=== PATIENT | female | born 1945 | race Caucasian/White ===

== ENCOUNTER → 2018-06-03 | Outpatient (CLI) | payer OTHER, MEDICAID ==
[~2018-06-03] MED LIST: ALEVE220 MG PO; AMARYL4 MG PO; AMBIEN 5 MG TABL5 M1 PO; CLONAZEPAM 0.50.5 M1 PO; COREG6.25 MG PO; DICLOFENAC SODI25 MG PO; FEVERALL JR 32325 M1 RECTAL; GABAPENTIN 100100 MG PO; GAS RELIEF 8080 MG PO; HYDROCHLOROTHIA25 M2 PO; IBUPROFEN 200200 M1 PO; LEVEMIR SUBQ; LIORESAL 10 MG10 MG PO; LOVASTATIN 20 M20 MG PO; MILK OF MA2400 MG/10 PO; NORCO 5-325 TA1 EACH PO; NOVOLOG100 UNIT/1 SUBQ; OMEPRAZOLE40 MG PO; OXYBUTYNIN 5 MG5 M2 PO; PERCOCET PO; PLAVIX 75 MG TA75 M1 PO; PRINIVIL20 MG PO; PROTONIX40 M1 PO; TOPROL XL25 MG PO; XARELTO10 MG PO; ZOLOFT25 MG PO
--- NOTE | 2018-06-10 16:29 | EKG ---
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
== END ==
LOC: EDUNIT# → M.MRI 09:49
DX: S83.242A Other tear of medial meniscus, current injury, left knee, initial encounter (principal); M17.12 Unilateral primary osteoarthritis, left knee; M25.462 Effusion, left knee; M71.22 Synovial cyst of popliteal space [Baker], left knee; M25.762 Osteophyte, left knee; X58.XXXA Exposure to other specified factors, initial encounter; Y93.89 Activity, other specified; Y92.89 Other specified places as the place of occurrence of the external cause; Y99.8 Other external cause status; Z96.652 Presence of left artificial knee joint

== ENCOUNTER 2018-06-22 06:12 | Inpatient (IN) | payer OTHER, MEDICAID ==
[2018-06-10 08:51] LABS: HEMATOCRIT 40.4 % (37.0-47.0); HEMOGLOBIN 13.6 gm/dL (12.0-15.0); MCHC 33.5 g/dL (28.0-37.0); MCV 92.4 fL (80.0-100.0); MPV 8.3 fl. (7.2-11.1); RBC 4.37 mil/uL (4.20-5.00); RDW-CV 14.3 % (10.5-14.5); WBC 6.9 thou/uL (4.0-11.0)
[2018-06-10 09:20] LABS: ALBUMIN 3.5 g/dL (3.4-5.0); CALCIUM 8.8 mg/dL (8.5-10.1); CREATININE 1.4 mg/dL (0.6-1.3); POTASSIUM 4.2 mmol/L (3.5-5.1); TOTAL BILIRUBIN 0.4 mg/dL (<0.1-1.0); TOTAL PROTEIN 7.2 g/dL (6.4-8.2)
[2018-06-10 10:15] LABS: URINE BILIRUBIN NEGATIVE (Negative); URINE BLOOD NEGATIVE (Negative); URINE CLARITY CLEAR; URINE COLOR YELLOW; URINE GLUCOSE-RANDOM NEGATIVE (Negative); URINE KETONES NEGATIVE (Negative); URINE LEUKOCYTES-REFLEX NEGATIVE (Negative); URINE NITRITE-REFLEX NEGATIVE (Negative); URINE PROTEIN NEGATIVE (Negative); URINE UROBILINOGEN 0.2 E.U./dl (0.2-1.0)
--- NOTE | 2018-06-10 11:00 | NUR ---
MET WITH PT.,WHO GOES BY [employer] AND HER NEIGHBOR,[place]. PT.HAD JUST FINISHED PAC CLASS. SHE WILL HAVE KNEE REPLACEMENT ON 06/22. SHE HAS HX OF CVA AND SAID HER MEMORY IS TERRIBLE. HER NEIGHBOR WILL REMEBER THINGS AND LET PT.'S DAUGHTER KNOW. NEIGHBOR WILL ALSO BEING TAKING CARE OF HER CAT WHILE SHE IS IN THE HOSPITAL. BRIEFLY DISCUSSED HOSPITAL COURSE. PT.WILL NOT HAVE ANYONE TO STAY WITH HER AND FEELS SHE WILL NEED TO GO TO SNF FOR REHAB. GAVE HER LIST OF FACILITIES. SHE WILL DISCUSS WITH DAUGHTER. TOLD HER I WILL SEE HER DAY AFTER HER SURGERY. SHE HAD NO FURTHER QUESTIONS.
[~2018-06-22] VITALS: Ht 160 cm; Wt 100.7 kg
[~2018-06-22 06:12] MED LIST changes: -AMBIEN 5 MG TABL5 M1 PO; -COREG6.25 MG PO; -FEVERALL JR 32325 M1 RECTAL; -MILK OF MA2400 MG/10 PO; -NORCO 5-325 TA1 EACH PO; -OMEPRAZOLE40 MG PO; -PERCOCET PO; -PROTONIX40 M1 PO; -XARELTO10 MG PO
[2018-06-22 09:15] VITALS: BP 147/61
--- NOTE | 2018-06-22 15:10 | NUR ---
PATEINT ARRIVED TO THE UNIT AT 1420 FROM PACU. ALERT AND ORIENTED BUT VERY SLEEPY. AROUSES WITH STIMULUS. 2 LITERS 02 WITH END TITLE PLACED. VSS ON 2 LITERS 02. WILL CHECK ORDERS AND IMPLEMENT. NO COMPLAINT OF PAIN, NAUSEA, OR SOA AT THIS TIME. CALL LIGHT PLACE WITHIN REACH. WILL CONTINUE TO MONITOR CLOSELY.
--- NOTE | 2018-06-22 17:02 | NUR ---
RECIEVED O.T. ORDERS. WILL DEFER TO P.T. AT THIS TIME. PLEASE ORDER FURTHER O.T. SERVICES AT THIS TIME.
--- NOTE | 2018-06-22 17:49 | NUR ---
PATEINT REMAINS ALERT AND ORIENTED X4. VSS ON 2 LITERS 02. MINIMAL COMPLAINTS OF PAIN. NO COMPLAINTS OF NAUSEA OR SOA. FLUIDS INFUSED ORDERED. PATIENT RESTING COMFORTABLY AT THIS TIME. HOURLY ROUNDS MAINTAINED, CALL LIGHT WITHIN REACH. NURSING WILL CONTINUE TO MONITOR.
[2018-06-23] VITALS: BP 141/54
[2018-06-23 04:00] VITALS: BP 123/60
[2018-06-23 04:09] LABS: HEMATOCRIT 32.4 % (37.0-47.0); HEMOGLOBIN 10.6 gm/dL (12.0-15.0)
--- NOTE | 2018-06-23 05:40 | NUR ---
PATIENT PROGRESSING TOWARDS GOALS. DENIED PAIN ALL SHIFT. TOLERATED THE CMP MACHINE WELL. PT GOT OUT OF BED INTO THE CHAIR, TOLERATED WELL. WILL CONTINUE TO MONITOR.
[2018-06-23 10:11] VITALS: BP 155/64
--- NOTE | 2018-06-23 10:54 | NUR ---
CALL FROM OCTAVIO CARRANZA [facility] SEVERAL DAYS AGO,STATING PT.AND DAUGHTER INTERESTED IN PT.COMING THERE FOR SKILLED STAY POST HOSPITALIZATION. SHE REQUESTED CM FAX HER INITIAL INFORMATION WHEN AVAILABLE. PT.GOING TO TELE TODAY FOR ELEVATED TROPONIN AND CHEST PAIN. INFORMED [phone] AND FAXED HER FACE SHEET,H&P AND OP [phone].
--- NOTE | 2018-06-23 12:56 | NUR ---
PT ARRIVED TO THE FLOOR AROUND 1145. PT A&O AND COOPERATIVE. BLOOD SUGAR WAS 455, TROPONIN LEVEL WAS CALLL FROM LAB AND NOTED TO BE 1.16 AT 1150. THESE RESULTS WERE COMMUNICATED TO DR BERNABE AT 1155 AND NO NEW ORDERS WERE RECIEVED. PT TREATED WITH INSULIN PER DEC. PT VSS AND TRACING SR ON THE MONITOR. NURSING WILL CONTINUE TO MONITOR.
--- NOTE | 2018-06-23 13:42 | NUR ---
ASSUMED CARE OF PATIENT AFTER MORNING REPORT AT APPROX 0740. ALERT AND ORIENTED X4 BUT FIRGETFUL AND SOMETIMES CONFUSED. ASSESSMENT COMPLETED AND CHARTED. VSS ON ROOM AIR. NO COMPLAINTS OF NAUSEA OR SOA DURING MORNING ASSESSMENT. MINIMAL COMPLAINTS OF PAIN ALSO NOTED ON MORNING ASSESSMENT. FLUIDS DISCONTINUED, ANTIBIOTICS INFUSED ORDERED. PAIN MEDICATION GIVEN BEFORE MORNING THERAPY, HEMAVAC REMOVED AT THIS TIME. PATIENT HAD COMPLAINT OF CHAEST PRESSURE AND PAIN. EKG ORDERED AND COMPLETED, LABS ORDERED WITH CRITICAL RESULTS FOR D-DIMER AND TROPONIN. DR BERNABE NOTIFIED, ORDERS GIVEN FOR CARDIOLOGY CONSULT AND TRANSFER TO TELEMETRY. REPORT GIVEN TO AMY COBB, PATIENT TRANSFERRED TO TELE AT 1115.
[2018-06-23 16:00] VITALS: BP 137/63
--- NOTE | 2018-06-23 17:12 | 2DMMODE ---
[place] [address] 2 D/M-MODE ECHOCARDIOGRAM Name: SKYLA CODY Room: [address] IN [facility]#: [id number] Admission: 06/22/18 Attend Phys: Sidney Malik Discharge: Date of : 41 Date of Service: 06/23/18 1711 Report #: [id number] THIS REPORT FOR: //name// APPROVED REPORT Study performed: 06/23/2018 14:43:52 EXAM: Comprehensive 2D, Doppler, and color-flow Echocardiogram Patient Location: In-Patient Room #: 200 Status: routine BSA: 2.05 HR: 69 bpm BP: 155/65 mmHg Rhythm: NSR Other Information Study Quality: Good Indications Elevated Troponin Chest Pain 2D Dimensions IVSd: 13.60 (7-11mm) LVOT Diam: 19.03 (18-24mm) LVDd: 43.99 mm PWd: 10.48 (7-11mm) Ascending Ao: 26.36 (22-36mm) LVDs: 24.45 (25-40mm) Aortic Root: 24.58 mm Aortic Valve AoV Peak Darren.: 2.18 m/s AO Peak Gr.: 19.09 mmHg LVOT Max P.79 mmHg AO Mean Gr.: 10.33 mmHg LVOT Mean P.61 mmHg LVOT Max V: 1.09 m/s AO V2 VTI: 48.38 cm LVOT Mean V: 0.75 m/s MIMI (VTI): 1.76 cm2 LVOT V1 VTI: 29.97 cm Mitral Valve E/A Ratio: 1.22 MV Decel. Time: 190.62 ms MV E Max Darren.: 1.60 m/s MV PHT: 55.28 ms MVA (PHT): 3.98 [place]2 [place] [address] 2 D/M-MODE ECHOCARDIOGRAM Name: SKYLA CODY Room: [address] IN [facility]#: [id number] Admission: 06/22/18 Attend Phys: Sidney Malik Discharge: Date of : 41 Date of Service: 06/23/18 1711 Report #: [id number] TDI E/Lateral E': 14.55 E/Medial E': 22.86 Medial E' Darren.: 0.07 m/s Lateral E' Darren.: 0.11 m/s Pulmonary Valve PV Peak Darren.: 0.98 m/s PV Peak Gr.: 3.85 mmHg Tricuspid Valve RAP Estimate: 5.00 mmHg TR Peak Gr.: 37.05 mmHg RVSP: 42.00 mmHg PA Pressure: 42.00 mmHg Left Ventricle The left ventricle is normal size. There is normal LV segmental wall motion. Mild concentric left ventricular hypertrophy. Left ventricular systolic function is normal. The left ventricular ejection fraction is within the normal range. LVEF is 55-60%. The left ventricular diastolic function is normal. Right Ventricle The right ventricle is normal size. The right ventricular systolic function is normal. Atria Left atrium is mildly dilated. The right atrium size is normal. Aortic Valve Mild aortic valve sclerosis. No aortic regurgitation is present. No hemodynamically significant valvular aortic stenosis. Mitral Valve There is mitral annular calcification. Mild mitral regurgitation. No evidence of mitral valve stenosis. Tricuspid Valve The tricuspid valve is normal in structure. Trace tricuspid regurgitation. Moderate pulmonary hypertension. Pulmonic Valve The pulmonary valve is normal in structure. There is no pulmonic valvular regurgitation. Great Vessels The aortic root is normal in size. IVC [place] [address] 2 D/M-MODE ECHOCARDIOGRAM Name: SKYLA CODY Myles Room: [address]#: [id number] Admission: 06/22/18 Attend Phys: Sidney Malik Discharge: Date of : 41 Date of Service: 06/23/18 1711 Report #: [id number] collapses >50% with inspiration. Pericardium There is no pericardial effusion. <Conclusion> The left ventricle is normal size. Mild concentric left ventricular hypertrophy. Left ventricular systolic function is normal. The left ventricular ejection fraction is within the normal range. LVEF is 55-60%. The left ventricular diastolic function is normal. The right ventricle is normal size. Left atrium is mildly dilated. Mild aortic valve sclerosis. No aortic regurgitation is present. No hemodynamically significant valvular aortic stenosis. There is mitral annular calcification. Mild mitral regurgitation. No evidence of mitral valve stenosis. The tricuspid valve is normal in structure. IVC is normal in size and collapses >50% with inspiration. There is no pericardial effusion. There is normal LV segmental wall motion. <ELECTRONICALLY SIGNED> By: Calin Tamayo MD, FACC 06/23/181710 10 10 Calin Tamayo MD, FACC /INF
--- NOTE | 2018-06-23 17:26 | EKG ---
[place] [address] ELECTROCARDIOGRAM REPORT Name: SKYLA CODY Room: [address] ADM IN .R.#: [id number] Admission: 06/22/18 Attend Phys: Alvina Olson Discharge: Date of : 41 Report #: [id number] THIS REPORT FOR: //name// [facility] Test Date: 2018-06-23 Test Time: 10:17:40 Pat Name: SKYLA CODY Department: Room: 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1945 Requested By: Sidney Malik Order Number: [id number] Reading MD: Calin Tamayo Measurements Intervals [place] Rate: 81 P: 39 WI: 156 QRS: -30 QRSD: 103 T: 79 QT: 399 QTc: 464 Interpretive Statements Sinus rhythm Abnormal R-wave progression, late transition LVH with secondary repolarization abnormality Compared to ECG 06/10/2018 08:56:31 No significant changes Electronically Signed On 06-23-2018 17:26:14 CDT by Calin Tamayo [email or web address] <ELECTRONICALLY SIGNED> By: Calin aTmayo MD, [facility] 06/23/18 [id number] Calin Tamayo MD, [facility] /EPI
--- NOTE | 2018-06-23 18:01 | NUR ---
ASSUMED CARE OF PT AFTER RECIEVING REPORT FROM AMY ASTUDILLO. PT IS ALERT AND ORIENTED TO SELF AND PLACE BUT IS OFTEN CONFUSED ON WHEN AND SITUATION. WHEN SPEAKING TO THE PT SHE OFTEN BEGINS TO RAMBLE ABOUT THINGS THAT MAKE NO SENSE. PT VSS AND TRACING SR ON THE MONITOR. WHEN PT ARRIVED TO THE FLOOR HER BS WAS IN EXCESS OF 450. DR BERNABE WAS ON THE FLOOR AND WAS INFORMED OF THIS AND THE PATIENTS CRITICAL TROPONIN LEVEL. NO NEWE ORDERS RECIEVED AND BS TREAED PER MAR. HOURLY ROUNDING COMPLETED FOR PATIENT COMFORT AND SAFTEY. NURSING WILL CONTINUE TO MONITOR.
[2018-06-23 20:00] VITALS: BP 124/95
[2018-06-24] VITALS: BP 102/36
[2018-06-24 04:00] VITALS: BP 111/43
[2018-06-24 04:34] LABS: HEMATOCRIT 27.7 % (37.0-47.0); HEMOGLOBIN 9.1 gm/dL (12.0-15.0)
--- NOTE | 2018-06-24 05:20 | NUR ---
ASSUMED CARE OF PT AFER REPORT AT 1930. PT A&4. FORGETFUL & CONFUSED AT TIMES. VSS. PHYSICAL ASSESSMENT COMPLETED AND CHARTED. PT ON RA WITH 92% O2 SAT. PT TRACING SR/SB ON TELE. PT UP STANDBY ASSIST TO TOILET.DENIES ANY PAIN OR DISCOMFORT. THIS NURSE TALKED TO PTS DAUGHTER (ADRIENNE VALDERRAMA) AND REQESTED FOR HER MOTHER TO HAVE A NEURO CONSULT FOR CONFUSION THIS AM. PTS DAUGHTER THINK THAT PT MAY HAD A MINI STROKES AFTER CVA ON 2013 THAT COULD CONTRIBUTE TO THE CONFUSION. HOURLY ROUNDING OBSERVED. CALL LIGHT WITHIN REACH. BED IN LOW POSITION. BED ALARM ON.
[2018-06-24 12:15] VITALS: BP 105/45
--- NOTE | 2018-06-24 12:43 | NUR ---
Pt is A&O, mild forgetfulness. Pt resides at home alone and is independent with ADLs. Supportive family that is invovled in POC. Pt has a cane that she uses for mobility. Hx of skilled at [facility]. Hx of , but does not recall the name of the agency. Pt's goal is to dc to [facility] [place] skilled, initial referral faxed. Therapy notes to be faxed once available. Pt stated that she is suppose to have a stress test tomorrow, anticipate dc tomorrow or over the weekend. When CM faxes therapy notes, will ask [facility] to initiate insurance auth for probably weekend dc. Following.
[2018-06-24 16:00] VITALS: BP 97/41
--- NOTE | 2018-06-24 19:04 | NUR ---
ASSUMED CARE OF PT AT 0730. PT REMAINS A&O BUT FORGETFUL. VSS ON ROOM AIR AND TRACING SR ON THE MONITOR. PT C/O PAIN EFFECTIVELY CONTROLLED WITH PRN PAIN MEDS PER DEC. PT HAS HAD 2 LOOSE STOOLS TODAY, BUT NONE IN THE LAST 4 HOURS. PT HAS ADECENT APPETITE AND HAS ATE GREATER THAN 75% OF MEALS. HOURLY ROUNDING COMPLETED FOR COMFORT AND SAFTEY,NURSING WILL CONTINUE TO MONITOR
[2018-06-24 20:00] VITALS: BP 73/25
[2018-06-25] VITALS (7 sets, daily range): BP systolic 92–124; BP diastolic 33–48
--- NOTE | 2018-06-25 04:59 | NUR ---
ASSUMED CAER OF PT AFTER REPORT AT 1930. PT A&OX4 AND FORGETFUL. VITAL SIGNS TAKEN AND RECORDED. BP 73/25 [facility]-[address] MCKEON INFORMED WITH NEW ORDERS. PHYSICAL ASSESSMENT COMPLETED AND CHARTED. PT ON RA WITH 96% O2 SAT. PT REMAINS ON BED ALL NIGHT SHE FEELS WEAK. DENIES ANY CHEST PAIN OR SOA. INSTRUCTED ON NPO FOR STRESS TEST TODAY. COMMUNICATES UNDERSTANDING. HOURLY ROUNDING OBSERVED. CALL LIGHT WITHIN REACH. BED IN LOW POSITION. BED ALARM ON.
--- NOTE | 2018-06-25 10:33 | NUR ---
ASSUMED CARE OF PT. PLEASE SEE DOCUMENTED ASSESSMENT. PT IS NPO FOR STRESS TEST. BETA ERLINDA HELD THIS MORNING WELL HYPOGLYCEMICS
--- NOTE | 2018-06-25 13:30 | NUR ---
[facility]
--- NOTE | 2018-06-25 14:53 | NUR ---
1425 RECEIVED PATIENT IN TRANSFER FROM ICU. PATIENT ASKS TO SHOWER BEFORE PUTTING ON TELEMETRY PACK. ASSESSMENT COMPLETED AND PT ASSISTED TO SHOWER.
--- NOTE | 2018-06-25 15:27 | NUR ---
1515 BACK FROM STRESS TEST. OT BATHING PATIENT
--- NOTE | 2018-06-25 15:30 | NUR ---
SPOKE TO PATIENT TO DISCUSS DISCHARGE PLANNING NEEDS AND SNF AT [facility] AT D/C. PATIENT INFORMS THAT SHE WOULD LIEK TO GO TO [facility] AT D/C IF POSSIBLE. PATIENT WILL NEED UPDATED PT NOTES AND AN OT EVAL FAXED TO [facility] WHEN AVAILABLE. CONTACTED [facility] ADMISSIOND AND LEFT A MESSAGE TO INFORM THAT UPDATED PT/OT NOTED WOULD BE FAXED WHEN AVAILABLE. CM WILL REMAIN AVAILABLE TO ASSIST AND FOLLOW NEEDED. [facility] PHONE: [phone] FAX: [phone]
--- NOTE | 2018-06-25 17:54 | NUR ---
PATIENT PROGRESSING TOWARDS GOALS. STRESS TEST COMPLETED THIS AFTERNOON. UP TO WALK AND TO WORK WITH THERAPIES. VSS. HAS NOT REQUIRED PAIN MEDICATION. CPM AND POLAR CARE MAINTAINED. DAUGHTER HAS VISITED. PLAN IS FOR SKILLED CARE
[2018-06-26 04:00] VITALS: BP 114/36
--- NOTE | 2018-06-26 04:54 | NUR ---
ASSUMED CARE OF PT AFTER REPORT AT 1930. PT A&OX4. VSS. PHYSICAL ASSESSMENT COMPLETED AND CHARTED. PT ON RA WITH 98% O2 SAT. PT TRACING SB ON TELE. PT UP WITH 1 ASSIST. PT RESTED WELL ON BED. DENIES ANY PAIN OR DISCOMFORT. HOURLY ROUNDING OBSERVED. HS REST & SAFETY GOALS ACHIEVED. CALL LIGHT WITHIN REACH. BED IN LOW POSITION. BED ALARM ON.
[2018-06-26 05:29] LABS: HEMATOCRIT 24.5 % (37.0-47.0); HEMOGLOBIN 8.3 gm/dL (12.0-15.0); MCH 31.4 pg (26.0-34.0); MCHC 33.7 g/dL (28.0-37.0); MCV 93.3 fL (80.0-100.0); MPV 9.2 fl. (7.2-11.1); RBC 2.63 mil/uL (4.20-5.00); WBC 8.4 thou/uL (4.0-11.0)
[2018-06-26 05:51] LABS: ALBUMIN 2.2 g/dL (3.4-5.0); CALCIUM 7.6 mg/dL (8.5-10.1); CREATININE 1.4 mg/dL (0.6-1.3); MAGNESIUM 1.8 mg/dL (1.8-2.4); POTASSIUM 4.5 mmol/L (3.5-5.1); TOTAL BILIRUBIN 0.2 mg/dL (<0.1-1.0); TOTAL PROTEIN 5.2 g/dL (6.4-8.2); TROPONIN-I LEVEL 0.55 ng/mL (<0.06)
[2018-06-26 07:30] VITALS: BP 114/41
--- NOTE | 2018-06-26 09:36 | NUR ---
Faxed OT note to [facility]. Will await return call re: bed availability and acceptance.
[2018-06-26 12:00] VITALS: BP 160/55
--- NOTE | 2018-06-26 14:19 | NUR ---
RECEIVED PT CARE 0700. SHE IS ALERT AND ORIENTED X4. FORGETFUL AT TIMES. VSS. WAIT STAFF TRACING SR-SB. HEART RATE 50'S-60'S. SHE IS UP WITH ASSIST X1, A GAIT BELT, AND A WALKER. SHE DENIES SOA. O2 SAT 100% ON ROOM AIR. AM ASSESSMENT CHARTED. MEDS PER DEC. NEW RENAL CONSULT CALLED AND RECEIVED NEW ORDERS PER DR BELLO. UP IN THE CHAIR MOST OF THE MORNING. CALL LIGHT WITHIN REACH. WILL CONTINUE TO MONITOR.
[2018-06-26 15:17] VITALS: BP 118/83
[2018-06-26 16:36] VITALS: BP 123/45
[2018-06-26 19:03] LABS: URINE BILIRUBIN NEGATIVE (Negative); URINE BLOOD NEGATIVE (Negative); URINE CLARITY CLEAR; URINE COLOR YELLOW; URINE GLUCOSE-RANDOM NEGATIVE (Negative); URINE KETONES NEGATIVE (Negative); URINE LEUKOCYTES-REFLEX NEGATIVE (Negative); URINE NITRITE-REFLEX NEGATIVE (Negative); URINE PROTEIN NEGATIVE (Negative); URINE UROBILINOGEN 0.2 E.U./dl (0.2-1.0)
[2018-06-26 20:00] VITALS: BP 157/57
[2018-06-27] VITALS: BP 111/35
[2018-06-27 04:00] VITALS: BP 98/44
--- NOTE | 2018-06-27 04:32 | NUR ---
ASSUMED CARE OF PT AFTER REPORT AT 1930. PT A&OX4. FORGETFUL AT TIMES. VSS. PHYSICAL ASSESSMENT COMPLETED AND CHARTED. PT ON RA WITH 99% O2 SAT. PT TRACING SB ON TELE. PT RESTED WELL ON BED. DENIES ANY PAIN OR DISCOMFORT. MEDS GIVEN PER MAR. HOURLY ROUNDING OBSERVED. CALL LIGHT WITHIN REACH. BED IN LOW POSITION.
[2018-06-27 04:41] LABS: HEMATOCRIT 24.2 % (37.0-47.0); HEMOGLOBIN 8.2 gm/dL (12.0-15.0); MCH 31.4 pg (26.0-34.0); MCHC 33.7 g/dL (28.0-37.0); MCV 93.1 fL (80.0-100.0); MPV 8.9 fl. (7.2-11.1); RBC 2.59 mil/uL (4.20-5.00); RDW-CV 13.6 % (10.5-14.5); WBC 7.7 thou/uL (4.0-11.0)
[2018-06-27 04:43] LABS: CALCIUM 7.6 mg/dL (8.5-10.1); CREATININE 1.2 mg/dL (0.6-1.3); MAGNESIUM 1.8 mg/dL (1.8-2.4); POTASSIUM 4.8 mmol/L (3.5-5.1)
[2018-06-27 07:30] VITALS: BP 149/47
[2018-06-27 11:30] VITALS: BP 175/56
[2018-06-27 15:41] VITALS: BP 155/58
[2018-06-27 16:07] LABS: ABSOLUTE EOSINOPHILS 0.2 thou/uL (0.0-0.7); ABSOLUTE LYMPHOCYTES 1.9 thou/uL (0.8-5.3); ABSOLUTE MONOCYTES 0.7 thou/uL (0.0-1.2); ABSOLUTE NEUTROPHILS 4.3 thou/uL (1.6-8.1); BASOPHILS 0.5 %; EOSINOPHILS 3.4 %; HEMATOCRIT 26.1 % (37.0-47.0); HEMOGLOBIN 8.7 gm/dL (12.0-15.0); LYMPHOCYTES 26.8 %; MCH 31.2 pg (26.0-34.0); MCHC 33.5 g/dL (28.0-37.0); MCV 93.1 fL (80.0-100.0); MONOCYTES 9.3 %; MPV 9.1 fl. (7.2-11.1); NUCLEATED RBCS 0 /100WBC; PLATELET COUNT* 176 thou/uL (150-400); WBC 7.1 thou/uL (4.0-11.0)
--- NOTE | 2018-06-27 18:13 | NUR ---
PATIENT PROGRESSING TOWARDS GOALS. PAIN CONTROLLED WITH PRN PAIN MEDICATIONS. PRN LAXATIVES AND STOOL SOFTENERS GIVEN. PRN LACTULOSE GIVEN AFTER NO BOWEL MOVEMENT WITHIN 6 HRS OF THE LAXATIVES. SHE DENES ANY SOA. UP WITH ASSIST X1, A WALKER, AND A GAIT BELT. UP IN THE CHAIR MOST OF THE AFTERNOON. FAMILY UPDATED ON PLAN OF CARE. WILL CONTINUE TO MONITOR. HOURLY ROUNDING CHARTED.
[2018-06-27 19:45] VITALS: BP 116/56
[2018-06-28] VITALS (8 sets, daily range): BP systolic 119–163; BP diastolic 43–58
--- NOTE | 2018-06-28 04:03 | NUR ---
END SHIFT: PT UP MULTIPLE TIMES TO COMMODE OR BATHROOM ATTEMPTING TO HAVE BM WITH NO RESULT. PT STATED SHE FELT CRAMPY AND HAD GAS PAINS. PT HAD ISSUES WITH WALKING WITH WALKER A FEW TIMES SHE STATES HER FEET KEPT FALLING ASLEEP AND THEY WERE TOO WEAK FOR HER TO WALK AND SHE REQUESTED A WHEELCHAIR. SB ON MONITOR. REFUSED POLAR PACK OVER SHIFT- WAS OFFERED MULTIPLE TIMES. NO REPORTS OF PAIN. VSS. ASSESSMENT UNCHANGED. SAFETY PRECAUTIONS IN PLACE. CALL LIGHT IN REACH. PERFORMED HOURLY ROUNDING. WILL CONT TO MONITOR.
[2018-06-28 04:46] LABS: ABSOLUTE EOSINOPHILS 0.3 thou/uL (0.0-0.7); ABSOLUTE LYMPHOCYTES 1.9 thou/uL (0.8-5.3); ABSOLUTE MONOCYTES 0.8 thou/uL (0.0-1.2); ABSOLUTE NEUTROPHILS 5.8 thou/uL (1.6-8.1); BASOPHILS 0.5 %; HEMATOCRIT 25.8 % (37.0-47.0); HEMOGLOBIN 8.7 gm/dL (12.0-15.0); LYMPHOCYTES 21.3 %; MCH 31.3 pg (26.0-34.0); MCHC 33.6 g/dL (28.0-37.0); MCV 93.4 fL (80.0-100.0); MONOCYTES 9.6 %; MPV 8.9 fl. (7.2-11.1); NUCLEATED RBCS 0 /100WBC; PLATELET COUNT* 200 thou/uL (150-400); POLYS 65.6 %; RBC 2.77 mil/uL (4.20-5.00); RDW-CV 13.9 % (10.5-14.5); WBC 8.8 thou/uL (4.0-11.0)
[2018-06-28 04:58] LABS: CREATININE 1.2 mg/dL (0.6-1.3); POTASSIUM 5.1 mmol/L (3.5-5.1)
--- NOTE | 2018-06-28 13:02 | NUR ---
I have reviewed the documentation by BAUDILIO LAUREANO from 06/28/18 and I concur with it. BONY OWENS
[2018-06-28] MEDS ORDERED: XARELTO10 MG PO (13:37)
[2018-06-28] MEDS ORDERED: PERCOCET PO (13:38)
[2018-06-28] MEDS ORDERED: FEVERALL JR 32325 M1 RECTAL (13:39)
[2018-06-28] MEDS ORDERED: COREG6.25 MG PO (13:40)
[2018-06-28] MEDS ORDERED: AMBIEN 5 MG TABL5 M1 PO (13:40)
[2018-06-28] MEDS ORDERED: NORCO 5-325 TA1 EACH PO (13:42)
[2018-06-28] MEDS ORDERED: PROTONIX40 M1 PO (13:43)
--- NOTE | 2018-06-28 13:46 | NUR ---
SPOKE TO THE PATIENT TO DISCUSS DISCHARGE PLANNING NEEDS AND SKILLED AT D/C. PATIENT INFORMS THAT SHE STIL PLANS TO GO TO [facility] FOR REHAB MEDICINE SKILLED AT D/C. SPOKE TO LESLY WITH ADMISSIONS AT [facility] FOR REHAB [facility] AND SHE INFORMS THAT SHE IS AWAITING INSURANCE AUTH, BUT SHOULD HAVE AUTH SOON. LESLY TO FOLLOW-UP WITH CM SOON SHE HAS AUTH. CM WILL REMAIN AVIALABLE TO ASSIST AND FOLLOW NEEDED.
--- NOTE | 2018-06-28 16:47 | NUR ---
HOURLY ROUNDING COMPLETE
--- NOTE | 2018-06-28 16:59 | CARDNUC ---
[place] [address] CARDIAC NUCLEAR IMAGING REPORT Name: SKYLA CODY Room: [address] IN [facility]#: [id number] Admission: 06/22/18 Attend Phys: Sidney Malik Discharge: Date of : 41 Date of Service: 06/28/18 1659 Report #: [id number] THIS REPORT FOR: //name// APPROVED REPORT Study performed: 06/24/2018 15:28:00 Indication: Abnormal EKG, Chest pain Patient Location: In-Patient Room #: 200 Stress Tech: Sabi Levin Stress Nurse: Constance Sargent RN Ht: 5 ft 3 in Wt: 222 lbs BSA: 2.02 m2 BMI: 39.32 Medical History Medical History: RECENT NSTEMIM HYPERLIPIDEMIA, HYPERTENSION, DIABETES, CVA Medications: XARELTO, HCTZ, LISINOPRIL, CARVEDILOL, ATORVASTATIN, PLAVIX Allergies: DONEPEZIL, LATEX Cardiac Risk Factors: AGE, HYPERLIPIDEMIA, HYPERTENSION, DIABETES Previous Cardiac Procedures: NONE Exercise History: Sedentary Meds Held (24 hrs): CARVEDILOL, PT HAD RECENT SURGERY TO LEFT KNEE. Resting Data Rest SPECT myocardial perfusion imaging was performed in supine position 30 minutes following the intravenous injection of 38.0 mCi of Tc-99m Sestamibi. Time of rest injection: 08:15 The images were gated to evaluate regional wall motion and calculate left ventricular ejection fraction. Administration Route: IV Administration Site: Right Arm Pharmacologic Stress Pharmacologic stress test was performed by injecting Regadenoson 0.4 mg IV push over 10-15 seconds immediately followed by the intravenous injection of 39.0 mCi of Tc-99m Sestamibi. Time of stress injection: 13:55 Administration Route: [place] [address] CARDIAC NUCLEAR IMAGING REPORT Name: SKYLA CODY Room: [address] IN ..#: [id number] Admission: 06/22/18 Attend Phys: Sidney Malik Discharge: Date of : 41 Date of Service: 06/28/18 1659 Report #: [id number] Administration Site: Right Arm Heart Rate at time of stress injection: 65 bpm. Gated Stress SPECT was performed 40 minutes after stress injection. The images were gated to evaluate regional wall motion and calculate left ventricular ejection fraction. Stress Test Details Stress Test: Pharmacologic stress testing performed using 0.4 mg of regadenoson per 5 mL given IV over 10 seconds. HR Max Heart Rate (APMHR): 145 bpm Resting HR: 60 bpm Target HR (85% APMHR): 123 bpm Max HR Achieved: 65 bpm % of APMHR: 44 Recovery HR: 64 bpm BP Resting BP: 143/101 mmHg Recovery BP: 123/55 mmHg ECG Resting ECG: Sinus Rhythm, normal EKG Stress ECG: Sinus Rhythm, normal EKG ST Change: None Arrhythmia: None Recovery ECG: Sinus Rhythm, normal EKG Recovery ST Change: None Recovery Arrhythmia: None Clinical Reason for Termination: Completed protocol Stress Symptoms: NONE Exercise duration: 0 min sec Exercise capacity: 1 METs The patient had no significant symptoms with Lexiscan infusion. Nurse Comments PT TOLERATED TEST WELL Stress ECG Conclusion The baseline 12-lead EKG show sinus rhythm with no significant ST or T wave abnormalities. EKGs obtained during and post Lexiscan infusion show sinus rhythm with no significant ST [place] [address] CARDIAC NUCLEAR IMAGING REPORT Name: SKYLA CODY Room: [address]#: [id number] Admission: 06/22/18 Attend Phys: Sidney Malik Discharge: Date of : 41 Date of Service: 06/28/18 1659 Report #: [id number] compared to baseline. There were no stress-induced arrhythmias. Study Quality Study: Good Artifact: No artifact Study Data At rest, the left ventricular ejection fraction was 76%.. Post stress, the left ventricular ejection was 71%.. TID = 1.02. Perfusion There is a focal mild in intensity reversible defect involving the apex. No other defects are identified. Wall Motion Normal left ventricular wall motion. Nuclear Conclusion ECG Findings: negative for ischemia Clinical Findings: negative for ischemia Nuclear Findings: positive for ischemia Exercise Capacity: not assessed Left Ventricular Function: normal Risk Study: moderate Myocardial perfusion images suggest a focal region of ischemia involving the apex. Overall left ventricular systolic function is well-preserved. This is a moderate risk study. <Conclusion> The baseline 12-lead EKG show sinus rhythm with no significant ST or T wave abnormalities. EKGs obtained during and post Lexiscan infusion show sinus rhythm with no significant ST or T wave changes when compared to baseline. There were no stress-induced arrhythmias. <ELECTRONICALLY SIGNED> By: Davion Alvarez MD, FACC 06/28/181658 58 58 Davion Alvarez MD, FACC /INF
--- NOTE | 2018-06-28 17:39 | NUR ---
PATIENT DISCHARGED TO [facility] AT THIS TIME VIA [facility]. IV REMOVED. NEW PAIR OF STEVEN HOSE APPLIED. [facility] SENT WITH PATIENT. SCRIPTS FOR PERCOCET AND XARELTO SENT. COPY OF CHART SENT. FACILITY TO PROVIDE CPM. REPORT GIVEN TO FACILITY. DAUGHTER WILL MEET PATIENT AT FACILITY.
--- NOTE | 2018-07-06 10:42 | OP ---
[facility] [address] [place] [address] OPERATIVE REPORT Name: SKYLA CODY Room: [address] IN ..#: [id number] Admission: 06/22/18 Attend Phys: Alvina Olson Discharge: 06/28/18 Date of : 41 Report #: [id number] THIS REPORT FOR: //name// CC: Chaz Malik DATE OF SERVICE: 06/22/2018 PREOPERATIVE DIAGNOSIS: Left knee arthritis. POSTOPERATIVE DIAGNOSIS: Left knee arthritis. PROCEDURE: Left total knee arthroplasty. SURGEON: Dillon Monroe II, DO EKG/ECG TECHNICIAN: MANUELITO Cross ANESTHESIA: General endotracheal with adductor canal block. ESTIMATED BLOOD LOSS: 60 mL. ANTIBIOTICS: Ancef preoperatively. DRAINS: Medium Hemovac. COMPLICATIONS: None. CONDITION OF PATIENT: Stable to recovery room. IMPLANTS: Listed in the operative record and progress note. BRIEF HISTORY: The patient seen in the preoperative area. Preoperative H and P was performed. Site was marked. Questions were answered. Risks and benefits were discussed with the patient in detail about surgery. The patient wished to proceed assuming all risks. DESCRIPTION OF PROCEDURE: The patient was taken to the operative suite and placed supine on the operative table and given appropriate anesthesia. A well-padded tourniquet applied to the upper thigh, was inflated to 300 mmHg after gravity exsanguination. The operative knee was sterilely prepped and draped. Surgery began by a midline incision. This was carried down to subcutaneous tissues. A medial parapatellar arthrotomy was performed and carried down to bone. The patella was then everted and excess soft tissue removed from around the femur. The femoral cutting block was then applied, [facility] [address] [place] [address] OPERATIVE REPORT Name: SKYLA CODY Room: [address]#: [id number] Admission: 06/22/18 Attend Phys: Alvina Olson Discharge: 06/28/18 Date of : 41 Report #: [id number] checked with a drop federico for rotational alignment, pinned into appropriate position and appropriate cuts were made. A 4-in-1 cutting block was then applied, checked for rotational alignment, pinned into appropriate position and appropriate cuts were made. The tibia was then exposed. Excess meniscus was removed. Retractor was placed along the collateral ligaments. Tibial cutting block was applied, pinned into appropriate position, checked with a drop federico for rotational alignment and slope and appropriate cut was made. Tibial bone was removed. Tibial baseplate was then applied, checked for rotational alignment with a drop federico and pinned into appropriate position. Pin was then applied and box cut was made. This was then trialed with the appropriate spacer, which showed excellent fit and fill and excellent stability of the knee through all range of motion. The patella was then reamed in appropriate fashion and sized to appropriate size. Three peg holes were drilled. It was then trialed and found to have excellent flexion, extension and excellent tracking of the patella within the groove. These trials were then removed. The tibia was punched in appropriate fashion. Bone ends were cleansed with Pulsavac irrigation. Cement was mixed and applied to the final implants. These were then malleted into position and held the knee in extension and compressed to allow cement to cure. After it cured, the excess was removed using a [place] and osteotome. The wound was then copiously irrigated and the final spacer was malleted into position. The tourniquet was deflated. Hemostasis was obtained with electrocautery. Pain cocktail was injected. PRP gel was sprayed throughout the internal aspects of the knee. The drain was applied. The capsule was closed with 2 FiberWire and 1 Vicryl in [id number] fashion. Skin was closed with 2-0 Vicryl and a running 3-0 Monocryl. Dermabond and sterile dressing was applied. The patient had an Robbi wrap and PolarCare applied. The patient was transferred to the recovery room in stable condition. Counts were correct throughout the procedure. <ELECTRONICALLY SIGNED> By: Dillon Monroe II, DO 07/06/18 1042 1651 [id number] Monroe II, DO /nt
--- NOTE | 2018-07-18 08:40 | CON ---
[address] [address] CONSULTATION Name: SKYLA CODY Room: [address] IN .R.#: [id number] Admission: 06/22/18 Attend Phys: Alvina Olson Discharge: 06/28/18 Date of : 41 Report #: [id number] THIS REPORT FOR: //name// CC: Chaz Malik DATE OF SERVICE: 06/26/2018 REFERRING PHYSICIAN: Dr. Post. HISTORY OF PRESENT ILLNESS: The patient is seen in consultation for acute kidney injury and elevated BUN and creatinine. HISTORY OF PRESENT ILLNESS: The patient is 73 years old. She was admitted on 06/22 for a left total knee replacement done by Dr. Monroe. The surgery was uncomplicated. The patient's postoperative course was also stable; however, the next morning after surgery, the patient started having left-sided chest pain, which radiated to the arm pit. Her troponins were elevated and she was diagnosed with non-ST elevation HI; however, because of the immediate postoperative phase, she was not given any thrombolytic or taken for an invasive procedure. She has been on Plavix and Xarelto. She was on Plavix before she came to the hospital also, which was continued. She has had a stress test done since that time. We were consulted because over the past few days, the patient's BUN has been rising. It was in 35 to 54 and then down to 43 today after saline infusion was given yesterday. The patient overall feels okay. She reports worsening lower extremity edema and pain in her left knee this morning. No fevers have been documented. No chills have been documented. She reports significant constipation at baseline, which has gotten worse since she came to the hospital. The patient has been on scheduled diclofenac and has orders for p.r.n. ketorolac and naproxen as per her medication list. She is not on any IV steroids. Her creatinine has been 1.4 and now down to 1.2. The patient reports no significant history of GI bleeds in the past except for some perianal bleed from significant constipation, possibly an anal fissure. PAST MEDICAL HISTORY: Significant for osteoarthritis, status post total knee replacement of the left knee, hypertension, diabetes, history of hysterectomy, tonsillectomy. She is a former smoker. Chronic constipation and history of CVA in 2013 with no significant residual deficit. MEDICATIONS: Include Protonix, carvedilol, insulin, glimepiride, Xarelto, oxybutynin, Lantus insulin, gabapentin 200 b.i.d., diclofenac, clonazepam, baclofen, sertraline, Plavix, Lipitor, simethicone, naproxen p.r.n., [place] [address] CONSULTATION Name: SKYLA CODY Room: [address] IN [facility].#: [id number] Admission: 06/22/18 Attend Phys: Alvina Olson Discharge: 06/28/18 Date of : 41 Report #: [id number] p.r.n., zolpidem at bedtime, Metamucil, Percocet, morphine p.r.n., milk of magnesia p.r.n. At home, she was on lisinopril and hydrochlorothiazide, which seemed to be on hold at this time. REVIEW OF SYSTEMS: Besides the left knee pain and swelling of the legs, she otherwise feels okay. She has had chronic constipation and she has not had a bowel movement for the past 2 days. PHYSICAL EXAMINATION: VITAL SIGNS: Blood pressure this morning was recorded as 98/44, previously was 111/35, pulse rate of 58, temperature 36.7. GENERAL: Awake, alert, answers all questions appropriately. LUNGS: Diminished, but clear. ABDOMEN: She is morbidly obese. She has a weak tenderness in her abdomen, but does not seem to have any peritoneal signs. EXTREMITIES: Lower extremity exam shows warmth and tenderness over the left knee area. There is a 1 to 2+ pitting edema bilaterally, more so on the left leg, which is the operative leg. LABORATORY DATA: Her labs from this morning: White count is 7.7, hemoglobin is 8.2. Interestingly, her admission hemoglobin was 10.6 and was 13.6 before the surgery. It has slowly drifted down from 10.6 to 8.2 this morning over the past 4 days. Platelet count is normal. Sodium is 142, potassium is 4.8, chloride 109, bicarbonate is 29, BUN is 43 and creatinine is 1.2, was 1.4 over the past 2 days, BUN was 54 yesterday, 42 this morning, calcium 7.6, magnesium 1.8, albumin 2.2. Urinalysis suggests clear urine with specific gravity of 1.010, urine sodium is 38 and urine creatinine is 39.7. IMAGING DATA: Imaging of the kidneys was obtained yesterday and it shows normal size kidneys bilaterally with no evidence of any hydronephrosis. ASSESSMENT: 1. Elevated BUN. 2. Mild elevation in creatinine, now back to 1.2, not sure of the patient's baseline, but that renal function appears appropriate for her age. 3. History of hypertension. 4. History of chronic constipation. 5. Recent non-ST elevation myocardial infarction in the postoperative phase from total knee replacement. 6. Total knee replacement done on 06/22. 7. History of diabetes. PLAN: 1. Acute kidney injury. The patient has been on scheduled NSAID and has been getting p.r.n. NSAID on top of that too. 2. There certainly could be some element of blood loss anemia from surgery, [place] [address] CONSULTATION Name: SKYLA CODY Myles Room: [address]#: [id number] Admission: 06/22/18 Attend Phys: Alvina Olson Discharge: 06/28/18 Date of : 41 Report #: [id number] though I am more concerned about enteric blood losses. Her BUN is inappropriately high for her creatinine. She is not on any steroids. 3. Stop all NSAIDs. 4. She appears euvolemic or may be even slightly hypervolemic, hence the IV fluids were stopped. She was encouraged to drink oral fluids. 5. Stool will need to be sent for occult blood testing. She has not had a bowel movement until now. We will give her Metamucil and lactulose as needed to obtain a bowel movement. Milk of magnesia can be used. 6. I discussed in detail with the nursing staff. We will follow along. Thank you for allowing us to see the patient in regards to antibiotics. <ELECTRONICALLY SIGNED> By: Alexis Rm MD 07/18/18 0840 0738 [id number] Rm MD /nt
== END 2018-06-28 17:42 | DRG 469 ==
LOC: M.PRE → M.ORTHSURG 08:28 → M.TBA 08:28 → M.PRE 09:42 → M.ORTHSURG 14:23 → M.PRE 15:07 → M.2W 06-23 11:54
PROVIDERS: Family Medicine; Internal Medicine Nephrology; Orthopaedic Surgery; ADMIT Internal Medicine
PROC: 0SRD0J9 Replacement of Left Knee Joint with Synthetic Substitute, Cemented, Open Approach (ICD-10-PCS; principal; 2018-06-22)
DX: M17.12 Unilateral primary osteoarthritis, left knee (principal); I21.4 Non-ST elevation (NSTEMI) myocardial infarction; N17.9 Acute kidney failure, unspecified; K59.09 Other constipation; E78.5 Hyperlipidemia, unspecified; E11.65 Type 2 diabetes mellitus with hyperglycemia; I34.0 Nonrheumatic mitral (valve) insufficiency; I12.9 Hypertensive chronic kidney disease with stage 1 through stage 4 chronic kidney disease, or unspecified chronic kidney disease; N18.3 Chronic kidney disease, stage 3 (moderate); E11.22 Type 2 diabetes mellitus with diabetic chronic kidney disease; I25.10 Atherosclerotic heart disease of native coronary artery without angina pectoris; D64.9 Anemia, unspecified; F41.9 Anxiety disorder, unspecified; Z88.8 Allergy status to other drugs, medicaments and biological substances; Z91.040 Latex allergy status; Z79.899 Other long term (current) drug therapy; Z79.4 Long term (current) use of insulin; Z86.73 Personal history of transient ischemic attack (TIA), and cerebral infarction without residual deficits; Z90.710 Acquired absence of both cervix and uterus; Z87.891 Personal history of nicotine dependence

== ENCOUNTER 2018-07-17 22:04 | Inpatient (IN) | payer OTHER, MEDICAID ==
[~2018-07-17] VITALS: Ht 160 cm; Wt 115.7 kg
[~2018-07-17 22:04] MED LIST changes: +AMBIEN 5 MG TABL5 M1 PO; +COREG6.25 MG PO; +FEVERALL JR 32325 M1 RECTAL; +NORCO 5-325 TA1 EACH PO; +PERCOCET PO; +PROTONIX40 M1 PO; +XARELTO10 MG PO
[2018-07-17 22:11] VITALS: BP 176/64
[2018-07-17 22:53] LABS: ABSOLUTE EOSINOPHILS 0.3 thou/uL (0.0-0.7); ABSOLUTE LYMPHOCYTES 1.2 thou/uL (0.8-5.3); ABSOLUTE MONOCYTES 0.7 thou/uL (0.0-1.2); ABSOLUTE NEUTROPHILS 3.8 thou/uL (1.6-8.1); BASOPHILS 0.8 %; EOSINOPHILS 4.9 %; HEMATOCRIT 24.3 % (37.0-47.0); HEMOGLOBIN 7.8 gm/dL (12.0-15.0); MCH 30.3 pg (26.0-34.0); MCHC 32.2 g/dL (28.0-37.0); MCV 94.1 fL (80.0-100.0); MONOCYTES 11.2 %; MPV 7.8 fl. (7.2-11.1); NUCLEATED RBCS 0 /100WBC; PLATELET COUNT* 275 thou/uL (150-400); POLYS 63.1 %; RBC 2.58 mil/uL (4.20-5.00); RDW-CV 15.4 % (10.5-14.5)
[2018-07-17] MEDS ORDERED: OMEPRAZOLE40 MG PO (22:57)
[2018-07-17] MEDS ORDERED: MILK OF MA2400 MG/10 PO (22:58)
[2018-07-17 23:07] LABS: ANION GAP 5 mmol/L (7-16); BUN 29 mg/dL (7-18); CALCIUM 8.8 mg/dL (8.5-10.1); CHLORIDE 106 mmol/L (98-107); CO2 31 mmol/L (21-32); CREATININE 1.4 mg/dL (0.6-1.3); GLUCOSE 59 mg/dL (70-99); POTASSIUM 3.9 mmol/L (3.5-5.1); SODIUM 142 mmol/L (136-145)
[2018-07-17 23:12] LABS: PROTIME 10.7 Seconds (9.20-11.50)
[2018-07-17 23:26] LABS: ALKALINE PHOSPHATASE 100 U/L (46-116); CK-MB MASS 2.4 ng/mL (<0.5-3.6); LIPASE 87 U/L (73-393); MAGNESIUM 1.7 mg/dL (1.8-2.4); NT-PRO BRAIN NAT PEPTIDE 3256 pg/mL (<300); SGOT 21 U/L (15-37); SGPT 32 U/L (30-65); TOTAL BILIRUBIN 0.2 mg/dL (<0.1-1.0); TOTAL PROTEIN 6.6 g/dL (6.4-8.2); TROPONIN-I LEVEL <0.06 ng/mL (<0.06)
[2018-07-18 01:00] VITALS: BP 198/74
[2018-07-18 04:00] VITALS: BP 145/48
[2018-07-18] MEDS ORDERED: NOVOLOG100 UNIT/1 SUBQ (05:24)
--- NOTE | 2018-07-18 07:44 | NUR ---
RECEIVED REPORT AND ASSUMED CARE OF PT AT 0110. PT TRANSPORTED FROM ED TO ROOM 232. BP SLIGHTLY ELEVATED, OTHERWISE VSS. CARDIAC MONITORING IN PLACE. ASSESSMENT COMPLETED CHARTED. ADMISSION COMPLETED BY NURSING. PT DENIES ANY COMPLAINTS OF PAIN. PT ORIENTATED TO ROOM, CALL LIGHT, FALL POLICY. PT ON 2L NC, UP WITH ASSIST TO BSC. RECENT L KNEE REPLACEMENT, 3 WEEKS POST OP PER PT. PT SENSITIVE TO LATEX, PRECAUTIONS MADE, ALLERGY BAND PUT ON, SIGN ON DOOR TO PT ROOM. PT HAS HEALING WOUNDS ON OUTTER LEFT LOWER EXTREMITY, STATES IS FROM LATEX TAPE USED POST OP, SMALL WOUND ON BUTTOCKS. PICTURES TAKEN AND PLACED ON CHART. PT POSITION CHANGED EVERY TWO HOURS. BED LOCKED IN LOWEST POSITION, CALL LIGHT WITHIN REACH.BED ALARM ON. HOURLY ROUDNING COMPLETED AND ALL NEEDS MET. PT MED REC COMPLETED. NURSING WILL CONTINUE TO MONITOR
[2018-07-18 08:00] VITALS: BP 176/72
[2018-07-18 10:33] LABS: ANION GAP 10 mmol/L (7-16); BUN 26 mg/dL (7-18); CALCIUM 9.7 mg/dL (8.5-10.1); CHLORIDE 101 mmol/L (98-107); CO2 25 mmol/L (21-32); CREATININE 1.4 mg/dL (0.6-1.3); GLUCOSE 361 mg/dL (70-99); POTASSIUM 4.6 mmol/L (3.5-5.1); SODIUM 136 mmol/L (136-145)
[2018-07-18 10:40] LABS: MAGNESIUM 1.6 mg/dL (1.8-2.4); TROPONIN-I LEVEL <0.06 ng/mL (<0.06)
--- NOTE | 2018-07-18 11:29 | NUR ---
ASSUMED CARE OF PATIENT THIS AM AT 0730. PATIENT IS ALERT AND ORIENTED X 4. SHE DID NOT HAVE PAIN WITH THIS AM'S ASSESSMENT. PATIENT ALSO STATED THAT HER BREATHING WAS BETTER. HER O2 SAT WAS 100% ON 2 LITERS. O2 WAS DECREASED TO 1 LITER NC AT THAT TIME. PATIENT HAD A SUDDEN CHANGE IN STATUS WITHIN 45 MINUTES. SHE BECAME SOA WITH AUDIBLE RHONCI AND DECREASED SATS IN THE 80S. DR. MCKEON NOTIFIED AND ORDERS GIVEN. PATIEN GIVEN 40 MG IV LASIX X 1. STAT PCXRAY DONE. RESPIRATORY NOTIFIED. PATIENT PLACED ON BIPAP. TANNER PLACED TO DD. STAT EKG DONE AND LABS SENT. PATIENT WAS NSR WITH AM STRIP WITH A SUDDEN CHANGE TO ST. DR FORD IN TO SEE PATIENT. REPORT CALLED TO ICU RM. PATIENT TRANSFERRED TO ICU BED 4 PER BED WITH RT AND MONITOR.
--- NOTE | 2018-07-18 12:12 | NUR ---
PT CARE ASSUMED AFTER TRANSFER FROM TELE. PT ON BIPAP WITH LABORED BREATHING. ASSESSMENT COMPLETE. BG 406. 20U HUMALOG INSULIN GIVEN AND DR MCKEON NOTIFIED PER ORDERS. PT DENIES PAIN. FAMILY AT BEDSIDE.
--- NOTE | 2018-07-18 15:00 | EKG ---
[place] [address] ELECTROCARDIOGRAM REPORT Name: SKYLA CODY Room: [address] ADM IN M.R.#: [id number] Admission: 07/17/18 Attend Phys: Kiran Post, Discharge: Date of : 41 Report #: [id number] THIS REPORT FOR: //name// [facility] ED Test Date: 2018-07-17 Test Time: 22:09:48 Pat Name: SKYLA CODY Department: Room: [facility] Gender: F Adjutant General: MILEY : 1945 Requested By: Joe Reed Order Number: [id number] MD: Davion Alvarez Measurements Intervals [place] Rate: 71 P: 39 AL: 160 QRS: -12 QRSD: 97 T: 99 QT: 437 QTc: 475 Interpretive Statements Sinus rhythm Low voltage, precordial leads Delayed R-wave progression Repol abnrm suggests ischemia, lateral leads Compared to ECG 06/23/2018 10:17:40 Low QRS voltage now present Possible ischemia now present Left ventricular hypertrophy no longer present Electronically Signed On 07-18-2018 15:00:47 CDT by Davion Alvarez [email or web address] <ELECTRONICALLY SIGNED> By: Davion Alvarez MD, FACC 07/18/181499 08 08 Davion Alvarez MD, FACC /EPI
--- NOTE | 2018-07-18 15:02 | EKG ---
[place] [address] ELECTROCARDIOGRAM REPORT Name: SKYLA CODY Room: [address] ADM IN M.R.#: [id number] Admission: 07/17/18 Attend Phys: Kiran Post, Discharge: Date of : 41 Report #: [id number] THIS REPORT FOR: //name// [facility] Test Date: 2018-07-18 Test Time: 04:19:45 Pat Name: SKLYA CODY Department: Room: [facility] Gender: F Technology Project Manager: SHANA : 1945 Requested By: Kiran Post Order Number: [id number] Reading MD: Davion Alvarez Measurements Intervals [place] Rate: 71 P: 37 NM: 103 QRS: -19 QRSD: 99 T: 164 QT: 431 QTc: 469 Interpretive Statements Sinus rhythm Short NM interval Borderline left axis deviation Low voltage, precordial leads Delayed R-wave progression Nonspecific repol abnormality, lateral leads Baseline wander in lead(s) I,III,aVL Compared to ECG 06/23/2018 10:17:40 Short NM interval now present Low QRS voltage now present Left ventricular hypertrophy no longer present Electronically Signed On 07-18-2018 15:01:58 CDT by Davion Alvarez [email or web address] <ELECTRONICALLY SIGNED> By: Davion Alvarez MD, FACC 07/18/18 1501 0419 Davion Alvarez MD, FACC /EPI
--- NOTE | 2018-07-18 15:04 | EKG ---
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 Blasting: : 1945 Requested By: Kiran Post Order Number: [id number] Reading MD: Davion Alvarez Measurements Intervals [place] Rate: 105 P: 64 FL: 161 QRS: -24 QRSD: 97 T: 100 QT: 360 QTc: 476 Interpretive Statements Sinus tachycardia Borderline left axis deviation Low voltage, precordial leads Consider anterior infarct Borderline repolarization abnormality Baseline wander in lead(s) V2 Compared to ECG 06/23/2018 10:17:40 Low QRS voltage now present Myocardial infarct finding now present Sinus rhythm no longer present Left ventricular hypertrophy no longer present Electronically Signed On 07-18-2018 15:03:45 CDT by Davion Alvarez [email or web address] <ELECTRONICALLY SIGNED> By: Davion Alvarez MD, FACC 07/18/18 1503 1003 1003 Davion Alvarez MD, FACC /EPI
[2018-07-18 16:56] LABS: CHOLESTEROL 102 mg/dL (<200); HDL CHOLESTEROL 41 mg/dL (>40); LDL CHOLESTEROL 51 mg/dL (<100); TC:HDL 2.5 Ratio (Not establshd); TRIGLYCERIDE 52 mg/dL (<150); VLDL 10 mg/dL (<40)
[2018-07-18 16:57] LABS: SERUM ASSESSMENT CLEAR
--- NOTE | 2018-07-18 18:18 | NUR ---
PT SR ON MONITOR. O2 2L NC. BIPAP REMOVED AND PT STABLE. LARGE AMOUNT OF URINE OUTPUT AFTER X3 DOSES OF LASIX. DENIES PAIN. PROGRESSING TOWARDS GOALS.
--- NOTE | 2018-07-18 21:37 | NUR ---
assumed patient care at 1900. patient alert and oriented times four. commander internal affairs completed as documented. hs med pass completed. New orders received from Dr. Hong that pt could be tele status if bed was needed. Patient currently on 4l via nc. O2 saturation 98%. cohen in place and draining clear, yellow urine. Report given to AMY Murillo and patient transferred to room 205 at 2130.
[2018-07-19] VITALS: BP 113/44
[2018-07-19 04:00] VITALS: BP 121/53
--- NOTE | 2018-07-19 04:24 | NUR ---
PT WAS TRANSFERRED TO ROOM 205 FROM ICU VIA W/C. PT AAOX4 RESP REG AND UNALBRED SKIN W/D, O2 4L BNC INTACT. PT ASSISTED TO HOSPITAL BED. TELEMETRY PACK APPLIED AND ALARMS SET. VSS AND NO ACUTE CHANGES DURING SHIFT. PT DENIES PAIN OR SOB AT THIS TIME. PT ORIENTED TO ROOM, CALL SYSTEM AND TV CONTROLS. WILL CONTINUE TO MONITOR. TANNER INTACT AND PATENT DRAINING YELLOW URINE.
[2018-07-19 04:32] LABS: HEMOGLOBIN 7.9 gm/dL (12.0-15.0); MCH 29.6 pg (26.0-34.0); MCHC 31.5 g/dL (28.0-37.0); MCV 93.8 fL (80.0-100.0); MPV 8.4 fl. (7.2-11.1); RBC 2.67 mil/uL (4.20-5.00); RDW-CV 15.6 % (10.5-14.5); WBC 13.9 thou/uL (4.0-11.0)
[2018-07-19 05:05] LABS: ALBUMIN 2.9 g/dL (3.4-5.0); CALCIUM 9.1 mg/dL (8.5-10.1); CREATININE 1.7 mg/dL (0.6-1.3); POTASSIUM 4.5 mmol/L (3.5-5.1); TOTAL BILIRUBIN 0.3 mg/dL (<0.1-1.0)
[2018-07-19 08:00] VITALS: BP 123/56
[2018-07-19 12:08] VITALS: BP 126/52
--- NOTE | 2018-07-19 15:39 | NUR ---
Pt is A&O. Resides at home alone. Known to this CM from previous hospial stay. Pt recently discharged to [facility] and was just sent home over the weekend after her skilled stay. Pt is normally independent. Pt has a walker and cane that she can use for mobility. Pt has HH, did not recall name of agency. Pt's goal is to return home at la. PT/OT ordered. Following.
[2018-07-19 20:00] VITALS: BP 96/41
[2018-07-20] VITALS (7 sets, daily range): BP systolic 95–125; BP diastolic 34–53
[2018-07-20 05:43] LABS: ABSOLUTE LYMPHOCYTES 1.3 thou/uL (0.8-5.3); ABSOLUTE MONOCYTES 1.2 thou/uL (0.0-1.2); ABSOLUTE NEUTROPHILS 10.4 thou/uL (1.6-8.1); HEMATOCRIT 22.7 % (37.0-47.0); HEMOGLOBIN 7.3 gm/dL (12.0-15.0); LYMPHOCYTES 10.4 %; MCHC 32.1 g/dL (28.0-37.0); MCV 93.3 fL (80.0-100.0); MONOCYTES 9.6 %; MPV 8.7 fl. (7.2-11.1); NUCLEATED RBCS 0 /100WBC; PLATELET COUNT* 261 thou/uL (150-400); RBC 2.43 mil/uL (4.20-5.00); RDW-CV 15.7 % (10.5-14.5)
[2018-07-20 05:48] LABS: ALBUMIN 2.6 g/dL (3.4-5.0); CALCIUM 8.6 mg/dL (8.5-10.1); CREATININE 1.9 mg/dL (0.6-1.3); POTASSIUM 3.8 mmol/L (3.5-5.1); TOTAL BILIRUBIN 0.3 mg/dL (<0.1-1.0); TOTAL PROTEIN 5.9 g/dL (6.4-8.2)
--- NOTE | 2018-07-20 05:49 | NUR ---
ASSUMED PT CARE AT 1930, PT IS A&OX4, TRACING NSR ON THE MONITOR, ON RA SATTING MID TO HIGH 90'S. PT DENIES ANY PAIN OR NEEDS AT THIS TIME, VASCBAND TAKEN OFF, GAUZE PLACED AND LIMB ALERT BAND PLACED ON PT'S RIGHT ARM. RIGHT ARM INSERTION SITE WAS CDI. BED IN LOW POSITION, CALL LIGHT IN REACH, BED ALARM ON, YELLOW ARM BAND AND SOCKS IN PLACE. HOURLY ROUNDING COMPLETED FOR PT SAFETY.
--- NOTE | 2018-07-20 14:35 | NUR ---
Nutrition: Pt was seen for high BMI. Pt was sound asleep at time if visit. Admitted with CP. Has HH. BLE edema, wt increasing since admit. Usual wt is 230#. CHO controlled diet ordered. H/o CHF, DM, CKD. Labs: alb 2.6, BG 208, Hgb 7.3, BUN 55, cr 1.9 and trending upward. RX: insulin, aspirin, lasix, zofran. RD will follow POC. Consider Mild risk at this time (BMI skewing risk).
--- NOTE | 2018-07-20 19:18 | NUR ---
PATIENT RESTING IN BED. UP WITH ASSIST X1. AOX4. PATIENT RECEIVED 1 UNIT PRBC TODAY. IV FLUIDS INFUSING. EXPECTED TO TRANSFER FOR CABG IF ACCEPTED, PER CARDIOLOGY. HOURY ROUNDING FOR PATIENT SAFET AND PATIENT IN NO APPRENT SIGNS OF DISTRESS AT THIS TIME. PATIENT DENIES CHEST PAIN.
[2018-07-21] VITALS (7 sets, daily range): BP systolic 109–139; BP diastolic 48–74
--- NOTE | 2018-07-21 05:09 | NUR ---
ASSUMED CARE OF PT AT 1900 PT DROWSY BUT AROUSABLE AND ORIENTED X4 VS AND ASSESSMENT STABLE PT RUMMING NSR ON THE MONITOR. PT HAD TYLENOL FRO L LEG PAIN THEN SLEPT THROUGH THE NIGHT. WILL CONTINUE PLAN OF CARE
[2018-07-21 05:11] LABS: ABSOLUTE EOSINOPHILS 0.1 thou/uL (0.0-0.7); ABSOLUTE LYMPHOCYTES 2.2 thou/uL (0.8-5.3); ABSOLUTE MONOCYTES 1.2 thou/uL (0.0-1.2); ABSOLUTE NEUTROPHILS 5.3 thou/uL (1.6-8.1); BASOPHILS 0.3 %; EOSINOPHILS 0.7 %; HEMATOCRIT 25.5 % (37.0-47.0); HEMOGLOBIN 8.3 gm/dL (12.0-15.0); LYMPHOCYTES 25.1 %; MCH 29.7 pg (26.0-34.0); MCHC 32.4 g/dL (28.0-37.0); MCV 91.8 fL (80.0-100.0); MONOCYTES 13.7 %; MPV 8.3 fl. (7.2-11.1); NUCLEATED RBCS 0 /100WBC; PLATELET COUNT* 217 thou/uL (150-400); POLYS 60.2 %; RBC 2.78 mil/uL (4.20-5.00); RDW-CV 15.1 % (10.5-14.5); WBC 8.9 thou/uL (4.0-11.0)
[2018-07-21 05:49] LABS: CALCIUM 8.4 mg/dL (8.5-10.1); CREATININE 2.1 mg/dL (0.6-1.3); POTASSIUM 3.4 mmol/L (3.5-5.1)
--- NOTE | 2018-07-21 09:42 | NUR ---
Cardiology following, Pt may need to transfer to [facility] for CABG, CM to remain available.
--- NOTE | 2018-07-21 09:58 | CARD ---
[address] [address] CARDIAC CATH REPORT Name: GLOSKYLA Bueno Room: [address] IN ..#: [id number] Admission: 07/17/18 Attend Phys: Kiran Post, Discharge: Date of : 41 Report #: [id number] THIS REPORT FOR: //name// APPROVED REPORT Study performed: 07/19/2018 14:52:13 Patient Details Patient Status: In-Patient Room #: 205 The patient is a 73 year-old female Event Personnel Calin Tamayo Pmo Business Analyst, Suresh Yang (R) Alber Santizo Diane Monitor, Mackenzie Dwyer Professional Fee Coder, Ivy Reeder RN Professional Fee Coder Procedures Performed Art Access - R radial artery , Selective Right and Left Coronary Angiography, Left Heart Catheterization Indication Non-STEMI , Heart failure Risk Factors Hypercholesterolemia, Hypertension Procedure Narrative The patient was brought electively to the Cardiac Catheterization Laboratory and was prepped and draped in a sterile manner. The right wrist was infiltrated with 2% Lidocaine subcutaneous anesthesia. A Slender Glidesheath sheath was inserted into the right radial artery. Coronary angiography was performed using coronary diagnostic catheters. The right coronary system was accessed and visualized with a JR4 5fr catheter. The left coronary system was accessed and visualized with a JL 3.5 5fr catheter. Left ventricular/Aortic Valve gradient assessed via catheter pullback. Intraoperative Conscious Sedation Sedation start time: 15:30 Case end Time: 16:55 Fentanyl 25 mcg Versed 1 mg Fluoro Time: 11.7 minutes Dose: DAP 690663 cGycm2 1642.77 mGy Contrast Type and Amount: Visipaque [address] [place] [address] CARDIAC CATH REPORT Name: SKYLA CODY Room: [address]#: [id number] Admission: 07/17/18 Attend Phys: Kiran Post, Discharge: Date of : 41 Report #: [id number] Coronary Angiography The patient's coronary anatomy is right dominant. Diagnostic Cath Left Main 0 Percent narrowing LAD 50% proximal with 90% mid LAD stenosis with 90% stenosis in the proximal portion of the first diagonal branch. There was diffuse distal LAD disease Circumflex 90% stenosis of the proximal portion of the first marginal branch of the nondominant circumflex Right Coronary Dominant vessel with 40% proximal narrowing and 80% distal narrowing before the bifurcation the posterior descending and posterolateral branches. There was 75% diffuse narrowing of the posterior descending branch of the distal right coronary artery Left Ventriculography Left Ventriculography was not performed. Hemodynamics The aortic pressure is 95/47 mmHg with a mean of mmHg. The left ventricular pressure is 106/9 mmHg with a mean of mmHg. The left ventricular end diastolic pressure is 23 mmHg. There was no gradient across the aortic valve upon pullback. Conclusion #1 severe coronary artery disease characterized by the following: A 50% tubular proximal LAD narrowing with 90% mid vessel stenosis and 90% stenosis of the first prominent diagonal branch of the LAD with diffuse distal LAD disease B nondominant circumflex with 90% stenosis of the proximal portion of the first marginal branch C dominant right coronary artery with 40% proximal narrowing, 80% distal narrowing, and 75% tubular narrowing of the posterior descending branch #2 moderate elevation of left ventricular end-diastolic pressure at rest Recommendations Cardiac [place] [address] CARDIAC CATH REPORT Name: SKYLA CODY Room: [address] IN M.R.#: [id number] Admission: 07/17/18 Attend Phys: Kiran Post, Discharge: Date of : 41 Report #: [id number] Diagnostic Cath Approved by: Calin Tamayo MD Date/Time: 07/21/2018 09:57:47 <ELECTRONICALLY SIGNED> By: Calin Tamayo MD, FACC 07/21/18 0958 0958Calin Tamayo MD, FACC /INF
--- NOTE | 2018-07-21 19:04 | NUR ---
PATIENT RESTING IN BED. UP WITH ASSIST X1 TO BSC. PARTICIPATING WITH PT/OT. AWAITING TRANSFER O [facility] FOR CABG. VITAL SIGNS STBALE. PATIENT RECIEVD OINE UNIT PRBC TODAY. HOURLY RPOUNDING COMPLLETED FOR PATINET SAFETY.
[2018-07-22] VITALS: BP 127/55
[2018-07-22 04:00] VITALS: BP 110/49
--- NOTE | 2018-07-22 04:07 | NUR ---
Pt pleasant and cooperative. Assisted to BSC for BM and void, but did neither. Pt eventually voided large amount late in shift while using bedpan. VSS; turned q2h. Reports no complaints. Awaiting transfer to [facility] for CABG. Will continue to monitor.
[2018-07-22 04:46] LABS: HEMOGLOBIN 9.7 gm/dL (12.0-15.0)
[2018-07-22 05:07] LABS: CALCIUM 8.2 mg/dL (8.5-10.1); CREATININE 1.5 mg/dL (0.6-1.3); POTASSIUM 4.1 mmol/L (3.5-5.1)
[2018-07-22 08:25] VITALS: BP 155/64
--- NOTE | 2018-07-22 09:04 | NUR ---
Spoke with Roslyn cardio DOCUMENTATION SUPERVISOR, plan transfer to [facility] on Thursday for CABG on Thursday. CM to initiate referral tomorrow.
--- NOTE | 2018-07-22 09:32 | NUR ---
ASSUMED CARE OF PT AROUND 0730 THIS AM. REFER TO ASSESSMENT. PT HAS NO C/O THIS AM. ANTICIPATE TRANSFER TO [facility] ON THURSDAY AND PLAN IS FOR CABG PROCEDURE TO BE ON THURSDAY. TELE SR. NO OTHER CONCERNS AT THIS TIME. CLWR. WCTM.
[2018-07-22 11:46] VITALS: BP 136/54
[2018-07-22 15:42] VITALS: BP 137/48
--- NOTE | 2018-07-22 18:08 | NUR ---
PT PROGRESSING TOWARDS GOALS THIS SHIFT. VSS. ANTICIPATE TRANSFER TO [facility] FOR CABG ON THURSDAY. NO OTHER CONCERNS AT THIS TIME. CLWR. WCTM.
[2018-07-22 20:00] VITALS: BP 146/58
[2018-07-23] VITALS: BP 129/48
[2018-07-23 04:00] VITALS: BP 107/45
[2018-07-23 04:24] LABS: HEMOGLOBIN 10.6 gm/dL (12.0-15.0)
[2018-07-23 04:43] LABS: CALCIUM 8.5 mg/dL (8.5-10.1); CREATININE 1.2 mg/dL (0.6-1.3)
--- NOTE | 2018-07-23 05:16 | NUR ---
ASSUMED PT CARE AT 1930, PT IS TRACING NSR/SB ON THE MONITOR, ON 2L NC SATTING MMID TO HIGH 90'S. PT DENIES ANY PAIN OR NEEDS, PT STATED HAVING LOW BLOOD SUGAR YESTERDAY SO SHE REQUESTED SHE ONLY TAKE 8 UNITS OF SHORT ACTING INSULIN. THIS AM AROUND 430 PT'S BG WAS 35. PT WAS GIVEN ONE AMP OF D50 WITH PUDDING AND GRAHM CRACKERS. BG IS NOW 145. BED IN LOW POSITION, CALL LIGHT IN REACH, BED ALARM ON, YELLOW ARM BAND AND SOCKS IN PLACE. HOURLY ROUNDING COMPLETED FOR PT SAFETY.
[2018-07-23 08:05] VITALS: BP 135/55
--- NOTE | 2018-07-23 09:13 | CON ---
[address] [address] CONSULTATION Name: SKYLA CODY Room: [address] IN .R.#: [id number] Admission: 07/17/18 Attend Phys: Kiran Post, Discharge: Date of : 41 Report #: [id number] THIS REPORT FOR: //name// CC: Chaz Post DATE OF SERVICE: 07/21/2018 REQUESTING PHYSICIAN: Calvin Luther M.D. REASON FOR CONSULTATION: Acute kidney injury. HISTORY OF PRESENT ILLNESS: The patient is a very pleasant 73-year-old female admitted to the hospital on 07/18/2018 with complaints for abdominal discomfort, dyspnea. She was seen by metal sprayer machined parts and diagnosed with coronary artery disease. Cardiology evaluation concluded that she needed to have bypass graft surgery done and records were forwarded to ____ at [facility] for possible CABG. In the meantime, her creatinine has gotten worse, on admission it was 1.4, went up to 1.9 and 2.1 today. She was taking lisinopril and Lasix and both medications were stopped. Her blood pressure is on the lower side, initially it was high at 212/65, but then dropped from 96/41 on 07/19/2018 which most likely contributed to a drop in her renal function. PAST MEDICAL HISTORY: 1. Medical history significant for chronic kidney disease stage 3. 2. History of coronary artery disease. 3. History of diabetes mellitus type 2. 4. History of hypertension. FAMILY HISTORY: Noncontributory. SOCIAL HISTORY: There is no tobacco or alcohol abuse. REVIEW OF SYSTEMS: Positive for being weak overall having some dyspnea, which is significantly less now compared to admission. She does have some nocturia and polyuria. Denies fever or chills. Denies hematuria. Rest of the systems negative. PHYSICAL EXAMINATION: GENERAL: Awake, alert, oriented. VITAL SIGNS: Blood pressure today 109/75, heart rate 59, afebrile. HEENT: Pupils are round. NECK: Supple. LUNGS: Decreased [place] [address] CONSULTATION Name: SKYLA CODY Room: [address] IN [facility]#: [id number] Admission: 07/17/18 Attend Phys: Kiran Post, Discharge: Date of : 43 Report #: [id number] CARDIOVASCULAR: Very distant heart tones. ABDOMEN: Soft. LOWER EXTREMITIES: No edema. LABORATORY DATA: Report from today, her hemoglobin is 8.3. Her serum sodium is 143, potassium 3.4, carbon dioxide is 35, BUN 62, creatinine 2.1. ASSESSMENT: A 73-year-old female admitted with dyspnea, diagnosed with coronary artery disease that require CABG if it is technically possible. Her acute kidney injury, most likely due to under perfusion of the kidney due to drop in her blood pressure. Her blood pressure was high and 170-180, then dropped to 90 in 2 days, 90s were too low for her. I agree with stopping her lisinopril. Diuretics were stopped as well. She is not fluid overloaded at the moment, so we will have to monitor her fluid status very carefully. We may have to give her p.r.n. Lasix. Her renal ultrasound was done and it was normal. PLAN: At this time 1. Monitor renal function. 2. Monitor intake and output. 3. Await recommendations from cardiothoracic surgeon. 4. Avoid nonsteroidals. 5. Avoid LIOR inhibitors and angiotensin receptor blockers. Thank you very for the consultation, we will follow with you. <ELECTRONICALLY SIGNED> By: Johnie Chu MD 07/23/18 0913 1345 [id number] Chu MD /nt
[2018-07-23 11:22] VITALS: BP 115/40
--- NOTE | 2018-07-23 11:39 | CON ---
[address] [address] CONSULTATION Name: SKYLA CODY Room: [address] IN .R.#: [id number] Admission: 07/17/18 Attend Phys: Kiran Post, Discharge: Date of : 43 Report #: [id number] THIS REPORT FOR: //name// CC: Chaz Post INDICATION: Acute shortness of breath. HISTORY OF PRESENT ILLNESS: The patient is a 73-year-old white female who recently had a left knee replacement. Postoperatively, she was noted to have an elevated troponin with an episode of chest pain consistent with non-ST elevation myocardial infarction. Follow up stress testing showed a small region of apical ischemia. Her test was felt to be moderate risk. The patient recovered and was discharged to rehabilitation therapy. She was readmitted today with acute respiratory issues. She reports acute shortness of breath. She was felt to possibly have a pneumonitis. Overnight, she has had some worsening respiratory function. This morning, she appears to be in acute pulmonary edema. She is responding nicely to a single bolus of IV Lasix. She had an episode of chest discomfort this morning. Initial troponin on this admission is unremarkable. At the time of my interview, she is on BiPAP. She appears slightly improved in her level of comfort. She is diuresing adequately. PAST MEDICAL HISTORY: 1. Non-ST elevation myocardial infarction. 2. Coronary artery disease. 3. CVA in 2013. 4. Hypertension. 5. Type 2 diabetes mellitus. 6. Hysterectomy remotely. 7. Tonsillectomy remotely. 8. Recent left knee replacement. ALLERGIES: DONEPEZIL AND LATEX. HOME MEDICATIONS: Baclofen; carvedilol 3.125 mg b.i.d.; clonazepam 0.5 mg, 1 to 2 tablets at bedtime; Plavix 75 mg daily; Voltaren 25 mg b.i.d.; gabapentin 200 mg b.i.d.; glimepiride 8 mg daily; hydrochlorothiazide 25 mg daily; insulin 8 units with lunch, 20 units with dinner, 10 units with breakfast; Levemir 50 units at bedtime; lovastatin 20 mg b.i.d.; milk of magnesia p.r.n.; omeprazole 40 mg daily; oxybutynin 5 mg one-half tablet b.i.d.; simethicone 80 mg daily. FAMILY HISTORY: Noncontributory. SOCIAL HISTORY: The patient quit smoking remotely. She does not drink alcohol. REVIEW OF SYSTEMS: Not obtainable [place] [address] CONSULTATION Name: SKYLA CODY Room: [address] IN ..#: [id number] Admission: 07/17/18 Attend Phys: Kiran Post, Discharge: Date of : 41 Report #: [id number] PHYSICAL EXAMINATION: VITAL SIGNS: Blood pressure 145/48, pulse is 96 and regular. HEENT: BiPAP mask in place. Extraocular muscles intact. NECK: Shows a thick neck without obvious JVD. CHEST: Reveals coarse breath sounds throughout. CARDIAC: Reveals a distant S1 and S2. I did not appreciate any obvious gallop or murmur. ABDOMEN: Reveals a protuberant abdomen, is soft and nontender. EXTREMITIES: Shows 1-2+ edema to the knees bilaterally. SKIN: Warm and dry. LABORATORY DATA: V/Q scan was low probability. Troponin is less than 0.06. Followup troponin is pending at this time. Labs from yesterday shows sodium 142, potassium 3.9, chloride 106, bicarbonate 31, BUN 29, creatinine 1.4, serum glucose 59. LFTs are within normal limits. CBC shows a hemoglobin 7.8, white blood cell count 6.0, platelet count 275,000. Chest x-ray yesterday showed possible basilar left infiltrate and pleural effusion. A 12-lead EKG shows sinus rhythm with no significant ST or T-wave abnormality. IMPRESSION AND RECOMMENDATIONS: 1. Acute respiratory failure likely due to acute heart failure, possibly diastolic or combined. She is responding nicely to bolus Lasix. I would continue this twice daily for the next day or 2 and then transition to oral diuretics. She is stable on BiPAP at this point in time. 2. Coronary artery disease with recent non-ST elevation myocardial infarction. I would recommend invasive evaluation once she is over the episode of acute heart failure. Continue aspirin. Continue Plavix. 3. Hypertension, adequately controlled presently. We will follow. 4. Chronic renal insufficiency. Obtain a.m. labs after diuresis. 5. Anemia after recent surgery. We will need to repeat a CBC to follow up hemoglobin. 6. Possible hyperlipidemia. We will obtain fasting lipid profile. 7. Diabetes per primary physician. <ELECTRONICALLY SIGNED> By: Davion Alvarez MD, FACC 07/23/18 1139 1022 [id number] Alvarez MD, FACC /nt
--- NOTE | 2018-07-23 11:54 | NUR ---
MEDICAL VOUCHER CLERK SPOKE TO JIGNESH WITH THE [facility] TRANSFER TEAM TO INFORM OF THE NEED TO SETUP [id number] TRANSFER REASON: CABG SCHEDULED AT [facility] ON THURSDAY (07/26/18) WITH DR SKINNER, TRANSFER DATE: THURSDAY (07/27/18). D/C [employer] FAXED [facility]ER TEAM PATIENT'S FACESHEET, H&P, CONSULTS, LABS, AND INFORMED RADILOLGY OF THE NEED TO UPLOAD THE IMAGES TO THE CLOUD. CM WILL REMAIN AVIALABLE TO ASSIST AND FOLLOW NEEDED.
[2018-07-23 14:00] VITALS: BP 120/44
--- NOTE | 2018-07-23 17:53 | NUR ---
ASSUMED CARE OF PT AT 0730. PT VSS AND CONTINUES TO TRACE SB-SR ON THE MONITOR. PT HAS HAD NO C/O PAIN OR DISTRESS TODAY. SHE HAS BEEN EATING WELL, SHE CONSUMED GREATER THSAN 50% OF ALL MEALS TODAY. BLOOD SUGARS HAVE BEEN STABLE AND ONLY REQUIRED INSULIN WITH DINNER TONIGHT. MEDICATIONS ADMINISTERED PER MAR AND NURSING DOCUMENTATION COMPLETED. HOURLY ROUNDING COMPLETED FPR PT COMFORT AND SAFTEY. NURSING WILL CONTINUE TO MONITOR.
[2018-07-23 20:30] VITALS: BP 118/44
[2018-07-24] VITALS: BP 112/44
[2018-07-24 04:00] VITALS: BP 131/51
--- NOTE | 2018-07-24 06:37 | NUR ---
ASSUMED PT BCARE AT 1930, PT IS A&OX4, PT IS TRACING NS JAREN THE MONITOR, ON 2L NC SATTING MID TO HIGH 90'S. PT DENIES ANY PAIN OR NEEDS AT THIS TIME. PT IS RESTING WITH EYES CLOSED, CALL LIGHT IN REACH, BED ALARM ON, YELLOW ARM BAND AND SOCKS IN PLACE. HOURLY ROUNDING COMPLETED FOR PT SAFETY
[2018-07-24 08:00] VITALS: BP 149/56
[2018-07-24 12:24] VITALS: BP 137/47
[2018-07-24 17:02] VITALS: BP 125/46
--- NOTE | 2018-07-24 18:35 | NUR ---
ASSUMED CARE OF PT AT 0730. PT REMAINS A&0 X4 CALM AND COOPERATIIVE. PT VSS ON ROOM AIR. PT TRACING SB ON THE MONITOR. PT UP SBA TO THE BATHROOM. SHE HAD A SMALL BM TODAY AFTER A SUPPOSITORY. PT HAS HAD NO C/O PAIN OR DISTESS. HOURLY ROUNDING COMPLETED FOR PT SAFTEY AND COMFORT. MEDICATIONS ADMINNISTERED PER DEC. NURSING WILL CONTINUE TO MONITOR.
[2018-07-24 19:20] VITALS: BP 149/61
[2018-07-25 02:04] VITALS: BP 126/43
[2018-07-25 04:42] VITALS: BP 99/64
--- NOTE | 2018-07-25 05:50 | NUR ---
VITALS WNL. SEE MAR. SEE CHARTING. FALL PRECAUTIONS IN PLACE. HOURLY ROUNDING FOR SAFETY.
[2018-07-25 08:17] VITALS: BP 124/52
[2018-07-25 12:00] VITALS: BP 149/53
[2018-07-25 16:00] VITALS: BP 134/49
--- NOTE | 2018-07-25 18:27 | NUR ---
ASSUMED CARE OF PT AT 0730. PT REMAINS A&O X4 CALM AND COOPERATIVE. PT HAS HAD NO C/O PAIN OR DISTRESS VSS AND TRACING SR ON THE MONITOR. PT HAD AN ENEMA TODAY FOR CONTINUE CONSTIPATION. PT HAD A LARGE BM FOLLOWING ENEMA. PT UP WITH 1 ASSIST AND HER WALKER. PT AMBULATING IN THE [place]YTON WITH NURSING STAFF. MEDICATIONS ADMINISTERED PER DEC. HOURLY ROUNDING COMPLERTED FOR COMFORT AND SAFTEY. NURSING WILL CONTINUE TO MONITOR.
[2018-07-25 19:40] VITALS: BP 149/61
[2018-07-26] VITALS: BP 141/88
[2018-07-26 04:00] VITALS: BP 125/42
--- NOTE | 2018-07-26 06:24 | NUR ---
VITAL WNL. SEE MAR. SEE CHARTING. FALL PRECAUTIONS IN PLACE. HOURLY ROUNDING FOR SAFETY. EMS TRANSFER PATIENT APROX 0600. REPORT CALLED TO [facility] GIVEN TO GAYLA REYES AT 0615
--- NOTE | 2018-08-11 12:52 | CON ---
[address] [address] CONSULTATION Name: SKYLA CODY Room: [address] IN M.R.#: [id number] Admission: 07/17/18 Attend Phys: Kiran Post, Discharge: 07/26/18 Date of : 43 Report #: [id number] THIS REPORT FOR: //name// CC: Chaz Post HISTORY OF PRESENT ILLNESS: This is a pleasant 73-year-old female with past medical history significant for coronary artery disease, hypertension, diabetes who was recently admitted to [facility] for elective knee arthroplasty. Postop, the patient had a non-STEMI and underwent medical therapy. She was then discharged to a rehab facility from where she was brought in because of complaints of shortness of breath, dyspnea on exertion and chest discomfort. GI Service has been consulted for evaluation of incidentally detected anemia. The patient denies any hematemesis, hematochezia, melena, weight loss or recent change in bowel habits. The patient reports she had a colonoscopy performed 5 years back, which was relatively unremarkable and does not recollect an EGD being performed. PAST MEDICAL HISTORY: As mentioned, the patient has a history of hypertension, diabetes, and hyperlipidemia. PAST SURGICAL HISTORY: The patient recently had an arthroplasty of the right knee, has a remote history of hysterectomy, tonsillectomy. SOCIAL HISTORY: The patient reports smoking in the remote past, but denies alcohol or recreational drug use. FAMILY HISTORY: Negative for colorectal cancer. REVIEW OF SYSTEMS: Negative except for what is mentioned. A comprehensive 10-point review of systems is negative except for what is mentioned in HPI. PHYSICAL EXAMINATION: VITAL SIGNS: Temperature 36.8, pulse rate 64, blood pressure 114/42, respirations 16. GENERAL: The patient is alert, awake, oriented x 3. HEENT: Pupils are equal, round, reactive to light and accommodation. LUNGS: Clear to auscultation bilaterally. CARDIOVASCULAR: Irregularly irregular. ABDOMEN: Soft. There is no distention, no guarding, no tenderness. EXTREMITIES: Warm, well perfused. There is 2+ pitting edema. NEUROLOGIC: No focal neurologic deficit. SKIN: Warm and dry. LABORATORY DATA: Hemoglobin 7.3, hematocrit 22.7, platelets 261, WBC count 13.0. Hemoglobin measured earlier in June of this year was 13.6[place] [address] CONSULTATION Name: CODYSKYLA Room: [address]#: [id number] Admission: 07/17/18 Attend Phys: Kiran Post, Discharge: 07/26/18 Date of : 43 Report #: [id number] 140, potassium 3.8, chloride 100, bicarbonate 32, BUN 53, creatinine 1.9, percent saturation 12, TIBC 334, AST 41, ALT 26, alkaline phosphatase 84. ASSESSMENT AND PLAN: This is a pleasant 73-year-old female with a past medical history significant for coronary artery disease, hypertension, hyperlipidemia and type 2 diabetes, who presented with acute pulmonary edema. The patient underwent cardiac catheterization during this admission and was found to have triple vessel disease and coronary artery bypass grafting has been recommended for further treatment. The patient is being transferred to [facility] for this purpose. Continue to monitor the patient clinically and keep her hemoglobin above 7. At this time, there are no signs of active gastrointestinal bleed and therefore we can defer the endoscopic evaluation until after the coronary artery bypass grafting is completed. Please call the GI Service with any questions. <ELECTRONICALLY SIGNED> By: Rohit Arce MD 08/11/18 1252 2252 [id number] Arce MD /nt
== END 2018-07-26 06:00 | disposition short-term general hospital (02) | DRG 286 ==
LOC: M.ERS 22:04 → M.TBA-ER 23:46 → M.2W 23:46 → M.ICU 23:46 → M.2W 07-18 00:01 → M.ICU 07-18 11:14 → M.2W 07-18 21:30
PROVIDERS: Family Medicine; Internal Medicine; Internal Medicine Cardiovascular Disease; ADMIT Family Medicine
PROC: 5A09357 Assistance with Respiratory Ventilation, Less than 24 Consecutive Hours, Continuous Positive Airway Pressure (ICD-10-PCS; principal; 2018-07-18)
PROC: 30233N1 Transfusion of Nonautologous Red Blood Cells into Peripheral Vein, Percutaneous Approach (ICD-10-PCS; 2018-07-20)
PROC: 4A023N7 Measurement of Cardiac Sampling and Pressure, Left Heart, Percutaneous Approach (ICD-10-PCS; 2018-07-21)
PROC: B2111ZZ Fluoroscopy of Multiple Coronary Arteries using Low Osmolar Contrast (ICD-10-PCS; 2018-07-21)
DX: I25.10 Atherosclerotic heart disease of native coronary artery without angina pectoris (principal); J15.6 Pneumonia due to other Gram-negative bacteria; J96.00 Acute respiratory failure, unspecified whether with hypoxia or hypercapnia; I50.33 Acute on chronic diastolic (congestive) heart failure; I13.0 Hypertensive heart and chronic kidney disease with heart failure and stage 1 through stage 4 chronic kidney disease, or unspecified chronic kidney disease; N17.9 Acute kidney failure, unspecified; E11.22 Type 2 diabetes mellitus with diabetic chronic kidney disease; D64.9 Anemia, unspecified; I16.0 Hypertensive urgency; E11.65 Type 2 diabetes mellitus with hyperglycemia; F41.9 Anxiety disorder, unspecified; E78.5 Hyperlipidemia, unspecified; N18.3 Chronic kidney disease, stage 3 (moderate); Z96.652 Presence of left artificial knee joint; I25.2 Old myocardial infarction; Z87.891 Personal history of nicotine dependence; Z86.73 Personal history of transient ischemic attack (TIA), and cerebral infarction without residual deficits; Z90.710 Acquired absence of both cervix and uterus; Z79.02 Long term (current) use of antithrombotics/antiplatelets; Z79.4 Long term (current) use of insulin; Z79.899 Other long term (current) drug therapy; Z88.8 Allergy status to other drugs, medicaments and biological substances; Z91.040 Latex allergy status

== ENCOUNTER → 2019-11-30 | Outpatient (CLI) | payer OTHER, MEDICAID ==
[~2019-11-30] MED LIST changes: +MILK OF MA2400 MG/10 PO; +OMEPRAZOLE40 MG PO
== END ==
LOC: M.MRI 10:57
DX: S83.241A Other tear of medial meniscus, current injury, right knee, initial encounter (principal); M71.21 Synovial cyst of popliteal space [Baker], right knee; M17.11 Unilateral primary osteoarthritis, right knee; M25.761 Osteophyte, right knee; M25.461 Effusion, right knee; X58.XXXA Exposure to other specified factors, initial encounter; Y93.89 Activity, other specified; Y92.89 Other specified places as the place of occurrence of the external cause; Y99.8 Other external cause status

== ENCOUNTER → 2019-12-22 | Outpatient (CLI) | payer OTHER, MEDICAID ==
[~2019-12-22] VITALS: Ht 160 cm; Wt 98.4 kg
[~2019-12-22] MED LIST changes: +ASA81BEC PO; +LASIX 20 MG TAB20 MG PO; +LEVEMIR FL100 UNIT/2 SUBQ; +LIPITOR80 MG PO
[2019-12-22 09:04] LABS: INR 1.1; PROTIME 11.2 Seconds (9.20-11.50)
[2019-12-22 10:19] LABS: URINE BILIRUBIN NEGATIVE (Negative); URINE BLOOD TRACE (Negative); URINE CLARITY CLEAR; URINE COLOR YELLOW; URINE GLUCOSE-RANDOM NEGATIVE (Negative); URINE KETONES NEGATIVE (Negative); URINE LEUKOCYTES-REFLEX NEGATIVE (Negative); URINE NITRITE-REFLEX NEGATIVE (Negative); URINE PROTEIN NEGATIVE (Negative); URINE SPECIFIC GRAVITY 1.025 (1.005-1.030); URINE UROBILINOGEN 0.2 E.U./dl (0.2-1.0)
--- NOTE | 2020-01-13 11:47 | EKG ---
[place] [address] ELECTROCARDIOGRAM REPORT Name: SKYLA CODY Room: [facility]#: [id number] Admission: 12/22/19 Attend Phys: Sidney Malik Discharge: Date of : 41 Date of Service: 12/22/19926 Report #: [id number] THIS REPORT FOR: //name// 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: : 1945 Requested By: Dillon Monroe Order Number: [id number] Magno MD: Davion Alvarez Measurements Intervals [place] Rate: 57 P: 47 GA: 151 QRS: -36 QRSD: 106 T: 69 QT: 481 QTc: 469 Interpretive Statements Sinus rhythm Left axis deviation Compared to ECG 07/18/2018 10:03:32 Sinus tachycardia no longer present Myocardial infarct finding no longer present Electronically Signed On 12-22-2019 14:13:30 CDT by Davion Alvarez [email or web address] <ELECTRONICALLY SIGNED> By: Davion Alvarez MD, FACC 12/22/19 1413 09 6 Davion Alvarez MD, FAC /EPI
== END ==
LOC: M.LAB 08:00 → M.PRE 01-03 06:28 → M.ORTHSURG 01-03 09:55 → EDSTATUS 01-03 15:21
PROVIDERS: Orthopaedic Surgery
DX: M17.11 Unilateral primary osteoarthritis, right knee (principal)

== ENCOUNTER 2020-03-20 06:51 | Observation (INO) | payer OTHER ==
[2020-03-14 15:27] LABS: HEMATOCRIT 41.2 % (37.0-47.0); MCH 31.1 pg (26.0-34.0); MCV 91.6 fL (80.0-100.0); MPV 8.6 fl. (7.2-11.1); RBC 4.5 mil/uL (4.20-5.00); RDW-CV 14.1 % (10.5-14.5); WBC 7.4 thou/uL (4.0-11.0)
[2020-03-14 15:35] LABS: URINE BILIRUBIN NEGATIVE (Negative); URINE BLOOD TRACE (Negative); URINE CLARITY CLEAR; URINE COLOR YELLOW; URINE GLUCOSE-RANDOM NEGATIVE (Negative); URINE KETONES NEGATIVE (Negative); URINE LEUKOCYTES-REFLEX TRACE (Negative); URINE NITRITE-REFLEX NEGATIVE (Negative); URINE PROTEIN NEGATIVE (Negative); URINE UROBILINOGEN 0.2 E.U./dl (0.2-1.0)
[2020-03-14 15:38] LABS: PROTIME 10.7 Seconds (9.20-11.50)
[2020-03-14 15:49] LABS: BACTERIA-REFLEX 1-9 Few /HPF (None Seen); CASTS None Seen /LPF (None Seen); CRYSTALS None Seen /LPF (None Seen); SQUAMOUS 0-3 Few /LPF (0-3); URINE RBC 0-2 Rare /HPF (0-2); URINE WBC-REFLEX 0-5 Rare /HPF (0-5)
[2020-03-14 15:52] LABS: ALBUMIN 3.4 g/dL (3.4-5.0); CALCIUM 8.9 mg/dL (8.5-10.1); CREATININE 1.3 mg/dL (0.6-1.3); POTASSIUM 4.4 mmol/L (3.5-5.1); TOTAL BILIRUBIN 0.7 mg/dL (<0.1-1.0); TOTAL PROTEIN 7.3 g/dL (6.4-8.2)
[~2020-03-20] VITALS: Ht 160 cm; Wt 97.5 kg
[2020-03-20] MEDS ORDERED: LEVEMIR100 UNIT/1 SUBQ ×2 (07:45→07:47)
[2020-03-20 08:00] VITALS: BP 132/62
[2020-03-20 12:39] VITALS: BP 112/78
[2020-03-20 16:22] VITALS: BP 197/66
--- NOTE | 2020-03-20 17:24 | NUR ---
PT REMAINED ALERT AND ORIENTED BUT FORGETFUL. PT UP TO COMMODE TO VOID. PT C/O PAIN, MEDS GIVEN ORDERED. PT C/O NAUSEA, MEDS GIVEN AND NO EMESIS. PT RESTING COMFORTABLY IN BED. FALL RISK PRECAUTIONS IN PLACE. HOURLY ROUNDING COMPLETED. WILL CONTINUE TO MONITOR.
[2020-03-20] MEDS ORDERED: PERCOCET 5-3251 EACH PO (17:57)
[2020-03-20] MEDS ORDERED: XARELTO10 MG PO (17:57)
[2020-03-20 17:58] VITALS: BP 197/66
[2020-03-20 19:44] VITALS: BP 177/76
--- NOTE | 2020-03-20 23:47 | NUR ---
BERNIE DISLODGED ESA DRAIN WHILE ON COMMODE AT 2330.
[2020-03-21] VITALS: BP 175/59
[2020-03-21 03:49] LABS: HEMATOCRIT 36.1 % (37.0-47.0); HEMOGLOBIN 12.3 gm/dL (12.0-15.0)
[2020-03-21 04:00] VITALS: BP 130/59
--- NOTE | 2020-03-21 06:10 | NUR ---
PATIENT UP WITH ONE TO COMMODE. CAPNO/2L. ICEPACK, OXY 5 MG FOR PAIN AT 0230. RECEIVED FLUIDS, ABX AND MEDS SCHEDULED. ESA DRAIN WAS DISLODGED AT 2330, 75 ML OUT. WILL CONTINUE TO MONITOR
[2020-03-21 09:42] VITALS: BP 104/71
--- NOTE | 2020-03-21 13:00 | NUR ---
SPOKE WITH PT.AND DAUGHTER,MEGAN. PT.ABLE TO ANSWER QUESTIONS APPROPRIATELY. 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 PT.SAID SHE LIVES ALONE. HAS A WALKER BUT HADN'T HAD TO USE PRE OP. NO ONE TO HELP HER AT DISCHARGE. FAMILY WORKS. HAS A HX OF [facility]. WOULD LIKE TO RETURN THERE AT DISCHARGE. EXPLAINED INSURANCE WOULD NEED TO AUTHORIZE IT. PT.S FAMILY IS SUPPORTIVE. CM FAXED SNF REFERRAL TO [facility].
[2020-03-21 16:00] VITALS: BP 110/64
--- NOTE | 2020-03-21 18:29 | NUR ---
ASSUMED CARE OF PATIENT AT APPROX 0730. ALERT AND OREITNED X4. ASSESSMENT COMPLETED AND CHARTED. VSS ON ROOM AIR. PAIN MANAGED WITH ORAL OXY IR. PATIENT HAD A RASH ON HER UPPER ARMS THAT SHE HAD SCRATCHED, GAVE BENADRYL ORDERED WITH RASH IMPROVEMENT. ACCUCHECKS AND UNSULIN GIVEN ORDERED. PATIENT UP WITH ASSIST USING GAIT BELT AND WALKER TO THE BATHROOM. NO OTHER COMPLAINTS THIS SHIFT. FALL PRECAUTIONS IN PLACE. CALL LIGHT WITHIN REACH. HOURLY ROUNDS COMPLETED. WILL CONTINUE WITH PLAN OF CARE.
[2020-03-21 19:47] VITALS: BP 151/53
[2020-03-22 05:24] LABS: HEMATOCRIT 28.1 % (37.0-47.0)
[2020-03-22 05:28] LABS: HEMOGLOBIN 9.7 gm/dL (12.0-15.0)
[2020-03-22 07:50] VITALS: BP 107/43
--- NOTE | 2020-03-22 08:54 | NUR ---
CALLED [facility]. SHE SAID THEY RECEIVED REFERRAL AND UPDATES YESTERDAY. THEY ARE REVIEWING IT NOW. THEY WILL SUBMIT FOR INS.AUTH IF THEY CAN ACCEPT. INFORMED DANETTE, SHE IS READY TODAY.
--- NOTE | 2020-03-22 11:50 | NUR ---
[facility] CALLED AND STATED THEY HAVE INSURANCE AUTH TO TAKE PT.TODAY TO SKILLED BED. THEY CAN ARRANGE VAN FOR 1430. TOLD HER SOLAR SALES ENERGY ADVISOR TO CHECK IN AT TABLET MAKING MACHINE OPERATOR HELPER OF MEDICAL MALL. INFORMED DR.DE DIANA RILEY OF FIELD SERVICE CONSULTANT TIME. SHE WILL HAVE DISCHARGE SUMMARY COMPLETED. CM NOTIFIED DAUGHTER,FABBY OF DISCHARGE AND TRANSFER TIME. SHE HAS [employer] NUMBER. SHE HAS A SUITCASE SHE WILL BRING TO [place] FOR PT. INFORMED [facility] THAT PT.NEEDS A CPM FOR USE THERE. CHART WILL BE COPIED TO GO WITH PTYazmin ASTUDILLO RN TO CALL REPORT.
[2020-03-22 14:29] VITALS: BP 197/66
--- NOTE | 2020-03-22 18:24 | NUR ---
ASSUMED CARE OF PATIENT AT APPROX 0730. ALERT AND ORIENTED X4. ASSESSMENT COMPLETED AND CHARTED. VSS ON ROOM AIR. PAIN MANAGED WITH ORAL OXY IR. PATIENT UP WITH GAIT BELT AND WALKER TO THE BATHROOM. WORKED WITH THERAPIES AND PROGRESSED TOWARD GOALS. NO OTHER COMPLAINTS. PATIENT DISCHARGED AT 1500 WITH ALL PERSONAL BELONGINGS, PRESCRIPTIONS AND DISCHARGE PACKET. TRANSPORTED TO [facility] VIA WHEELCHAIR VAN.
--- NOTE | 2020-03-28 12:26 | OP ---
[facility] [address] [place] [address] OPERATIVE REPORT Name: KSYLA CODY Room: [address] Magdiel#: [id number] Admission: 03/20/20 Attend Phys: Alvina Olson Discharge: 03/22/20 Date of : 41 Report #: [id number] THIS REPORT FOR: //name// cc: Chaz Toro MD, Erick J. MD ~ THIS REPORT FOR: //name// CC: Chaz Malik DATE OF SERVICE: 03/20/2020 PREOPERATIVE DIAGNOSIS: Right knee osteoarthritis. POSTOPERATIVE DIAGNOSIS: Right knee osteoarthritis. PROCEDURE: Right total knee arthroplasty. SURGEON: Dillon Monroe II, DO. BUFFING WHEEL OPERATOR: MANUELITO Cross. ANESTHESIA: General endotracheal. ESTIMATED BLOOD LOSS: 50 mL. ANTIBIOTICS: Ancef preoperatively. DRAINS: Medium Hemovac. COMPLICATIONS: None. CONDITION OF THE PATIENT: Stable to recovery room. IMPLANTS: Listed in operative record and progress note. BRIEF HISTORY: The patient was seen in the preoperative area. Preoperative H and P was performed. Site was marked, questions were answered. Risks and benefits were discussed with the patient in detail about surgery. The patient wished to proceed, assuming all risks. DESCRIPTION OF PROCEDURE: The patient was taken to the operative suite and placed supine on the operative table, given appropriate anesthesia. A well-padded tourniquet applied to upper thigh, which was inflated to 300 mmHg after gravity exsanguination. The operative knee was sterilely prepped and [facility] [address] [place] [address] OPERATIVE REPORT Name: SKYLA CODY [address]: [address]#: [id number] Admission: 03/20/20 Attend Phys: Alvina Olson Discharge: 03/22/20 Date of : 41 Report #: [id number] draped. Surgery began by midline incision. This was carried down to the subcutaneous tissues. A medial parapatellar arthrotomy was performed and carried down to bone. Patella was then everted and excess soft tissue removed from around the femur. Femoral cutting block was then applied, checked with drop federico for rotational alignment, pinned in appropriate position and appropriate cuts were made. A 4-in-1 cutting block was then applied, checked for rotational alignment, pinned in appropriate position and appropriate cuts were made. The tibia was then exposed. Excess meniscus was removed. Retractor was placed on collateral ligaments. The tibial cutting block was applied, pinned in appropriate position, checked with a drop federico for rotational alignment and slope and appropriate cut was made. The tibial bone was removed. Tibial base plate was then applied, checked for rotational alignment with the drop federico and pinned in appropriate position. Femur was then applied and box cut was reamed. This was then trialed with appropriate spacer, which showed excellent fit and fill and excellent stability of the knee through all range of motion. The patella was then reamed in appropriate fashion and sized to appropriate size. Three peg holes were drilled and it was then trialed and showed excellent flexion and extension, excellent tracking of the patella within the groove. These trials were removed. The tibia was punched in appropriate fashion. Bone ends were cleansed with Pulsavac irrigation and cement was mixed and applied to final implants. These were then malleted into position and held the knee in extension and compressed to allow cement to cure. After it cured, excess was removed using a [place] and osteotome. Wound was then copiously irrigated and the final spacer was then malleted into position. The tourniquet was deflated. Hemostasis was obtained with electrocautery. Pain cocktail was injected. PRP gel was sprayed throughout the internal aspects of the knee. Medium Hemovac drain was applied. Capsule was closed with #2 FiberWire and #1 Vicryl in [id number] fashion. Skin was closed with 2-0 Vicryl and running 3-0 Monocryl. Dermabond and sterile dressing applied. Robbi wrap and PolarCare applied. The patient transported to recovery room in stable condition. Counts were correct throughout the procedure. <ELECTRONICALLY SIGNED> By: Dillon Monroe II, DO 03/28/20 1226 [id number] Monroe II, DO /nt
== END 2020-03-22 15:00 ==
LOC: M.PRE 06:51 → M.TBA 07:10 → M.ORTHSURG 07:10 → M.TBA 07:10 → M.ORTHSURG 09:04 → M.TBA 09:04 → M.ORTHSURG 09:04 → EDSTATUS 10:01 → M.PRE 10:46 → M.ORTHSURG 12:20 → M.PRE 15:03 → M.ORTHSURG 03-22 15:00
PROVIDERS: Orthopaedic Surgery; ADMIT Internal Medicine; ATTEND Internal Medicine
DX: Z03.818 Encounter for observation for suspected exposure to other biological agents ruled out (principal); M17.11 Unilateral primary osteoarthritis, right knee; I11.0 Hypertensive heart disease with heart failure; I50.9 Heart failure, unspecified; I25.10 Atherosclerotic heart disease of native coronary artery without angina pectoris; E11.9 Type 2 diabetes mellitus without complications; E78.5 Hyperlipidemia, unspecified; Z87.891 Personal history of nicotine dependence